=== PATIENT | female | born 1945 | race Hispanic/Latino ===

== ENCOUNTER 2017-03-26 11:20 | Inpatient (IN) | payer MEDICARE ==
[2017-03-26] MEDS ORDERED: Morphine 4 MG/ML VIAL ONE (12:14)
--- NOTE | 2017-03-26 12:24 | ED PDOC ---
HPI: General Adult Time Seen by Provider: 03/26/17 11:25 Chief Complaint (Nursing): Lower Extremity Problem/Injury History Per: Patient, Family Additional Complaint(s): Pt. states earlier today she attempted to sit on top of her radiator and accidentally fell landing on her L side injuring her L hip. States that she was able to stand up and bare weight on the affected leg but with pain. Pt. states she was only on the floor for ~15 minutes until she was helped up. Of note, pt. has hx of polio which affects the L leg. Denies head injury, chest pain, palpitations, numbness, tingling. Past Medical History Reviewed: Historical Data, Nursing Documentation, Vital Signs Vital Signs: Last Vital Signs Temp 98.3 F 03/26/17 11:23 Pulse 63 03/26/17 19:49 Resp 18 03/26/17 11:23 BP 121/73 03/26/17 16:22 Pulse Ox 100 03/26/17 19:49 - Medical History PMH: HTN, Hypercholesterolemia - Family History Family History: States: No Known Family Hx - Home Medications Home Medications: Ambulatory Orders Medication Instructions Recorded Losartan [Cozaar] 25 mg PO DAILY 03/26/17 Simvastatin [Zocor] 20 mg PO HS 03/26/17 - Allergies Allergies/Adverse Reactions: Allergies Allergy/AdvReac Type Severity Reaction Status Date / Time No Known Allergies Allergy Verified 03/26/17 11:23 Review of Systems ROS Statement: Except As Marked, All Systems Reviewed And Found Negative Physical Exam - Physical Exam Appears: Positive for: Well, Non-toxic, No Acute Distress Head Exam: Positive for: ATRAUMATIC, NORMAL INSPECTION, NORMOCEPHALIC Skin: Positive for: Normal Color, Warm. Negative for: Rash Eye Exam: Positive for: Normal appearance Pulses-Dorsalis Pedis (L): 2+ Pulses-Dorsalis Pedis (R): 2+ Gastrointestinal/Abdominal: Positive for: Normal Exam, Soft. Negative for: Tenderness Back: Positive for: Normal Inspection. Negative for: Vertebral Tenderness Extremity: Positive for: Other (L groin tenderness but pt. with FROM actively of L hip) Neurologic/Psych: Positive for: Alert, Oriented - Laboratory Results Result Diagrams: 03/26/17 16:00 03/26/17 16:00 - ECG ECG: Positive for: Interpreted By Me ECG Rhythm: Positive for: Sinus Rhythm. Negative for: ST/T Changes Rate: 63 O2 Sat by Pulse Oximetry: 100 - Radiology X-Ray: Interpreted by Me (CXR) X-Ray Interpretation: No Acute Disease - Progress ED Course And Treament: Morphine 1mg IV, zofran 4mg IV, L hip x-ray ordered. L hip x-ray: indeterminate femoral neck fx. CT L hip w/o contrast ordered. CT L hip w/o contrast: Minimally displaced subcapital fracture of the left femoral neck. Labs ordered. CXR, EKG ordered. Case d/w Dr. Johnson who requests Dr. Gonzalez for orthopedic consult. Call placed to Dr. Gonzalez. Case d/w Dr. Gonzalez who will take pt. to OR tomorrow and requires med clearance. Dr. Johnson informed of need for clearance and states he is on his way to hospital to evaluate pt. Disposition - Clinical Impression Clinical Impression: Hip fracture - Patient ED Disposition Is Patient to be Admitted: Yes - Disposition Disposition Time: 15:51 Condition: STABLE
--- NOTE | 2017-03-26 15:30 | CT ---
PROCEDURE: CT Pelvis without contrast HISTORY: s/p fall COMPARISON: None. TECHNIQUE: Contiguous axial images of the pelvis . No intravenous or oral contrast given. Coronal and sagittal reformats generated. Radiation dose: Total exam DLP = mGy-cm. This CT exam was performed using one or more of the following dose reduction techniques: Automated exposure control, adjustment of the mA and/or kV according to patient size, and/or use of iterative reconstruction technique. FINDINGS: BLADDER: Unremarkable. No mass. REPRODUCTIVE ORGANS: Unremarkable. VISUALIZED BOWEL: Unremarkable. PERITONEUM: Unremarkable, as visualized. No free fluid. No free air. LYMPH NODES: Unremarkable. No enlarged lymph nodes. BONES: Minimally displaced subcapital fracture of the left femoral neck. VASCULATURE: Unremarkable. OTHER FINDINGS: None. IMPRESSION: Minimally displaced subcapital fracture of the left femoral neck.
--- NOTE | 2017-03-26 15:32 | CT ---
PROCEDURE: CT of the Left Hip. HISTORY: attention L hip; s/p fall COMPARISON: None available. TECHNIQUE: Contiguous axial images of the left hip were obtained. Coronal and sagittal reformats were generated. This CT exam was performed using one or more of the following dose reduction techniques: Automated exposure control, adjustment of the mA and/or kV according to patient size, and/or use of iterative reconstruction technique. FINDINGS: BONES: Minimally displaced subcapital fracture of the left femoral neck.Femoral head maintains normal contour. LEFT HIP JOINT: Unremarkable. No dislocation. No degenerative changes. SOFT TISSUES: Unremarkable. IMPRESSION: Minimally displaced subcapital fracture of the left femoral neck.
[2017-03-26] MEDS ORDERED: Sodium Chloride 0.9% 1,000 ML IV STA (16:00)
[2017-03-26 16:21] LABS: BASO % 0.3 % (0.0-2.0); EOS # 0.2 K/uL (0.0-0.7); EOS % 2.4 % (0.0-4.0); HEMATOCRIT 43.2 % (34.0-47.0); LYMPH # 1.3 K/uL (1.0-4.3); LYMPH % 19.7 % (20.0-40.0); MEAN CELL VOLUME 90.7 fl (81.0-99.0); MEAN CORPUSCULAR HEMOGLOBIN 30.6 pg (27.0-31.0); MEAN CORPUSCULAR HGB CONC 33.8 g/dL (33.0-37.0); MEAN PLATELET VOLUME 9.2 fl (7.2-11.7); MONO # 0.3 K/uL (0.0-0.8); MONO % 4.7 % (0.0-10.0); NEUT # 4.9 K/uL (1.8-7.0); NEUT % 72.9 % (50.0-75.0); NRBC % 0.1 % (0.0-0.0); RED CELL DISTRIBUTION WIDTH 15.4 % (11.5-14.5); WHITE BLOOD COUNT 6.7 K/uL (4.8-10.8)
[2017-03-26 16:22] LABS: ALB/GLOB RATIO 1.1 (1.0-2.1); ALKALINE PHOSPHATASE 75 U/L (38-126); ALT/SGPT 37 U/L (9-52); AST/SGOT 23 U/L (14-36); BILIRUBIN,TOTAL 0.7 mg/dl (0.2-1.3); BLOOD UREA NITROGEN 24 mg/dl (7-17); CALCIUM 9.2 mg/dL (8.4-10.2); CARBON DIOXIDE 27 mmol/L (22-30); CHLORIDE 106 mmol/L (98-107); GFR AFRICAN-AMERICAN > 60; GLUCOSE,RANDOM 74 mg/dL (65-105); POTASSIUM 3.9 MMOL/L (3.6-5.0); SODIUM 143 mmol/l (132-148); TOTAL PROTEIN 8.1 G/DL (6.3-8.2)
[2017-03-26 16:49] LABS: PARTIAL THROMBOPLASTIN TIME 28.9 Seconds (25.6-37.1)
--- NOTE | 2017-03-26 17:02 | RAD ---
PROCEDURE: HISTORY: trauma COMPARISON: TECHNIQUE: FINDINGS: Subcapital fracture of the left femoral neck. IMPRESSION: See above
--- NOTE | 2017-03-26 17:09 | RAD ---
HISTORY: clearance COMPARISON: No prior. FINDINGS: LUNGS: No active pulmonary disease. PLEURA: No significant pleural effusion identified, no pneumothorax apparent. CARDIOVASCULAR: Normal. OSSEOUS STRUCTURES: No significant abnormalities. VISUALIZED UPPER ABDOMEN: Normal. OTHER FINDINGS: None. IMPRESSION: No active disease.
[2017-03-26 19:01] LABS: RBC URINE 5 /hpf (0-3); URINE BACTERIA RARE (<OCC); URINE BILIRUBIN NEGATIVE (NEGATIVE); URINE BLOOD SMALL (NEGATIVE); URINE COLOR YELLOW (YELLOW); URINE GLUCOSE (UA) NEG (Normal); URINE KETONE TRACE mg/dL (NEGATIVE); URINE LEUKOCYTE ESTERASE NEG Leu/uL (Negative); URINE PROTEIN NEGATIVE (NEGATIVE); URINE UROBILINOGEN 0.2-1.0 mg/dL (0.2-1.0); WBC URINE 2 /hpf (0-5)
[2017-03-26] MEDS ORDERED: Dextrose 5%/0.9% NS 1,000 ML IV SCH (20:00)
--- NOTE | 2017-03-26 20:12 | CP.PCM.HP ---
History of Present Illness - History of Present Illness History of Present Illness: Pt.is 71 y/o Indian speaking lady with hx of HTN, residual of polio in her lt lower limb. She c/o that earlier today she attempted to sit on top of her radiator and accidentally fell landing on her L side injuring her L hip. Since than she c/o that she was not able to stand up with severe pain. At present c/ o pain with any movement. The pain is relieved by morphine iv. Present on Admission - Present on Admission Any Indicators Present on Admission: No Review of Systems - Constitutional Constitutional: As Per HPI - EENT Eyes: As Per HPI - Cardiovascular Cardiovascular: As Per HPI - Respiratory Respiratory: As Per HPI - Gastrointestinal Gastrointestinal: As Per HPI - Musculoskeletal Musculoskeletal: As Per HPI - Neurological Neurological: As Per HPI - Psychiatric Psychiatric: As Per HPI Past Patient History - Past Social History Smoking Status: Never Smoked - CARDIAC Hx Hypercholesterolemia: Yes Hx Hypertension: Yes - PULMONARY Hx Respiratory Disorders: No - MUSCULOSKELETAL/RHEUMATOLOGICAL Hx Musculoskeletal Disorders: Yes - PSYCHIATRIC Hx Substance Use: No Meds Allergies/Adverse Reactions: Allergies Allergy/AdvReac Type Severity Reaction Status Date / Time No Known Allergies Allergy Verified 03/26/17 11:23 Physical Exam - Constitutional Appears: In Acute Distress - Head Exam Head Exam: ATRAUMATIC, NORMAL INSPECTION, NORMOCEPHALIC - Eye Exam Eye Exam: Normal appearance - ENT Exam ENT Exam: Mucous Membranes Moist - Neck Exam Neck exam: Positive for: Full Rom - Respiratory Exam Respiratory Exam: NORMAL BREATHING PATTERN - Cardiovascular Exam Cardiovascular Exam: REGULAR RHYTHM, +S1, +S2 - GI/Abdominal Exam GI & Abdominal Exam: Normal Bowel Sounds, Soft - Extremities Exam Additional comments: + tenderness at level of the hip, patien not able to articulate the lt lower limb secondary to severe pain. - Neurological Exam Neurological exam: Abnormal Gait, Alert, CN II-XII Intact, Oriented x3 Additional comments: not able to ambulate - Psychiatric Exam Psychiatric exam: Anxious - Skin Skin Exam: Intact Results - Vital Signs Recent Vital Signs: Last Vital Signs Temp 98.3 F 03/26/17 11:23 Pulse 63 03/26/17 19:50 Resp 18 03/26/17 11:23 BP 121/73 03/26/17 16:22 Pulse Ox 100 03/26/17 19:50 - Labs Result Diagrams: 03/26/17 16:00 03/26/17 16:00 Labs: Laboratory Results - last 24 hr 03/26/17 03/26/17 03/26/17 16:00 16:00 16:00 WBC 6.7 RBC 4.76 Hgb 14.6 Hct 43.2 MCV 90.7 MCH 30.6 MCHC 33.8 RDW 15.4 H Plt Count 196 MPV 9.2 Neut % (Auto) 72.9 Lymph % (Auto) 19.7 L [place] % (Auto) 4.7 Eos % (Auto) 2.4 Baso % (Auto) 0.3 Neut # 4.9 Lymph # 1.3 [place] # 0.3 Eos # 0.2 Baso # 0.0 PT INR APTT Sodium 143 Potassium 3.9 Chloride 106 Carbon Dioxide 27 Anion Gap 14 BUN 24 H Creatinine 0.4 L Est GFR ( Amer) > 60 Est GFR (Non-Af Amer) > 60 Random Glucose 74 Calcium 9.2 Total Bilirubin 0.7 AST 23 ALT 37 Alkaline Phosphatase 75 Total Protein 8.1 Albumin 4.3 Globulin 3.8 Albumin/Globulin Ratio 1.1 Urine Color Urine Clarity Urine pH Ur Specific [place] Urine Protein Urine Glucose (UA) Urine Ketones Urine Blood Urine Nitrate Urine Bilirubin Urine Urobilinogen Ur Leukocyte Esterase Urine RBC (Auto) Urine Microscopic WBC Ur Squamous Epith Cells Urine Bacteria Blood Type A POSITIVE Antibody Screen Negative BBK History Checked No verified bt 03/26/17 03/26/17 16:00 18:40 WBC RBC Hgb Hct MCV MCH MCHC RDW Plt Count MPV Neut % (Auto) Lymph % (Auto) [place] % (Auto) Eos % (Auto) Baso % (Auto) Neut # Lymph # [place] # Eos # Baso # PT 11.5 INR 1.0 APTT 28.9 Sodium Potassium Chloride Carbon Dioxide Anion Gap BUN Creatinine Est GFR ( Amer) Est GFR (Non-Af Amer) Random Glucose Calcium Total Bilirubin AST ALT Alkaline Phosphatase Total Protein Albumin Globulin Albumin/Globulin Ratio Urine Color Yellow Urine Clarity Slighty-cloudy Urine pH 6.0 Ur Specific [place] 1.016 Urine Protein Negative Urine Glucose (UA) Neg Urine Ketones Trace Urine Blood Small Urine Nitrate Negative Urine Bilirubin Negative Urine Urobilinogen 0.2-1.0 Ur Leukocyte Esterase Neg Urine RBC (Auto) 5 H Urine Microscopic WBC 2 Ur Squamous Epith Cells < 1 Urine Bacteria Rare Blood Type Antibody Screen BBK History Checked Assessment & Plan (1) Hyperlipemia Status: Chronic (2) Hypertensive cardiovascular disease Status: Chronic (3) Hip fracture Status: Acute (4) Polio Status: Chronic - Assessment and Plan (Free Text) Plan: Discussed with Dr Gonzalez. IVF, bed rest, for surgery.
--- NOTE | 2017-03-27 07:07 | CARD ---
APPROVED REPORT EKG Measurement Heart [id number] [id number] <Conclusion> Normal sinus rhythm Possible Anterior infarct, age undetermined Abnormal ECG
--- NOTE | 2017-03-27 08:28 | CP.PCM.CON ---
History of Present Illness - History of Present Illness History of Present Illness: Orthopedic consultation Dr. Gonzalez 71F complains of left hip pain after fall at home onto left side. Denies any CP/ SOB/dizziness preceding fall. She has history of polio with left leg involvement , has orthopedic shoe, has had surgery on knee and ankle approx 40 years ago for same, and ambulates without assistive device. She denies pain in other extremities. Past Patient History - Past Medical History & Family History Past Medical History?: Yes - Past Social History Smoking Status: Never Smoked - CARDIAC Hx Hypercholesterolemia: Yes Hx Hypertension: Yes - PULMONARY Hx Respiratory Disorders: No - MUSCULOSKELETAL/RHEUMATOLOGICAL Hx Falls: Yes Other/Comment: Polio - PSYCHIATRIC Hx Substance Use: No - ANESTHESIA Hx Anesthesia: Yes Hx Anesthesia Reactions: No Meds Allergies/Adverse Reactions: Allergies Allergy/AdvReac Type Severity Reaction Status Date / Time No Known Allergies Allergy Verified 03/26/17 11:23 - Medications Medications: Current Medications Dextrose/Sodium Chloride (Dextrose 5%/0.9% Ns 1000 Ml) 1,000 mls @ 85 mls/hr IV .[id number] CARLITO Stop: 03/27/17 19:57 Last Admin: 03/26/17 23:43 Dose: 85 mls/hr Physical Exam - Expanded Lower Extremities Exam Left Ankle exam: deformity (+toe flexion, no active ankle ROM, +DP/PT pulses, calves soft NT neg homans well healed scars to knee and ankle) Neuro vacular tendon exam: no vascular compromise - Neurological Exam Neurological exam: Alert, Oriented x3 - Psychiatric Exam Psychiatric exam: Normal Affect, Normal Mood - Skin Skin Exam: Dry, Intact, Warm Additional comments: noted areas of erythema to anterior thigh, patient states she put ice directly on skin Results - Vital Signs Recent Vital Signs: Last Vital Signs Temp 99.2 F 03/27/17 08:08 Pulse 78 03/27/17 08:08 Resp 20 03/27/17 08:08 BP 126/69 03/27/17 08:08 Pulse Ox 91 L 03/27/17 08:08 - Labs Result Diagrams: 03/27/17 08:44 03/26/17 16:00 Labs: Laboratory Results - last 24 hr 03/26/17 03/26/17 03/26/17 16:00 16:00 16:00 WBC 6.7 RBC 4.76 Hgb 14.6 Hct 43.2 MCV 90.7 MCH 30.6 MCHC 33.8 RDW 15.4 H Plt Count 196 MPV 9.2 Neut % (Auto) 72.9 Lymph % (Auto) 19.7 L [place] % (Auto) 4.7 Eos % (Auto) 2.4 Baso % (Auto) 0.3 Neut # 4.9 Lymph # 1.3 [place] # 0.3 Eos # 0.2 Baso # 0.0 PT INR APTT Sodium 143 Potassium 3.9 Chloride 106 Carbon Dioxide 27 Anion Gap 14 BUN 24 H Creatinine 0.4 L Est GFR ( Amer) > 60 Est GFR (Non-Af Amer) > 60 Random Glucose 74 Calcium 9.2 Total Bilirubin 0.7 AST 23 ALT 37 Alkaline Phosphatase 75 Total Protein 8.1 Albumin 4.3 Globulin 3.8 Albumin/Globulin Ratio 1.1 Urine Color Urine Clarity Urine pH Ur Specific [place] Urine Protein Urine Glucose (UA) Urine Ketones Urine Blood Urine Nitrate Urine Bilirubin Urine Urobilinogen Ur Leukocyte Esterase Urine RBC (Auto) Urine Microscopic WBC Ur Squamous Epith Cells Urine Bacteria Blood Type A POSITIVE Blood Type Confirm Antibody Screen Negative BBK History Checked No verified bt 03/26/17 03/26/17 03/26/17 16:00 18:40 20:30 WBC RBC Hgb Hct MCV MCH MCHC RDW Plt Count MPV Neut % (Auto) Lymph % (Auto) [place] % (Auto) Eos % (Auto) Baso % (Auto) Neut # Lymph # [place] # Eos # Baso # PT 11.5 INR 1.0 APTT 28.9 Sodium Potassium Chloride Carbon Dioxide Anion Gap BUN Creatinine Est GFR ( Amer) Est GFR (Non-Af Amer) Random Glucose Calcium Total Bilirubin AST ALT Alkaline Phosphatase Total Protein Albumin Globulin Albumin/Globulin Ratio Urine Color Yellow Urine Clarity Slighty-cloudy Urine pH 6.0 Ur Specific [place] 1.016 Urine Protein Negative Urine Glucose (UA) Neg Urine Ketones Trace Urine Blood Small Urine Nitrate Negative Urine Bilirubin Negative Urine Urobilinogen 0.2-1.0 Ur Leukocyte Esterase Neg Urine RBC (Auto) 5 H Urine Microscopic WBC 2 Ur Squamous Epith Cells < 1 Urine Bacteria Rare Blood Type Blood Type Confirm A POSITIVE Antibody Screen BBK History Checked Assessment & Plan (1) Left displaced femoral neck fracture Assessment and Plan: for anterior THR today NPO T&C labs reviewed H&P reviewed, per Dr. Johnson for OR d/w Dr. Gonzalez, agrees with above Status: Acute
[2017-03-27 08:53] LABS: HEMATOCRIT 39.7 % (34.0-47.0); MEAN CELL VOLUME 89.8 fl (81.0-99.0); MEAN CORPUSCULAR HEMOGLOBIN 30.6 pg (27.0-31.0); MEAN CORPUSCULAR HGB CONC 34.1 g/dL (33.0-37.0); WHITE BLOOD COUNT 7.1 K/uL (4.8-10.8)
[2017-03-27] MEDS ORDERED: ceFAZolin IV 1 gm in Dextrose 0 GM/0 ML BAG IVPB ONE (11:39)
[2017-03-27] MEDS ORDERED: Morphine 1 mg/ml preservative-free Inj(Duramorph) ONE (11:55)
[2017-03-27] MEDS ORDERED: Rocuronium 10 mg/ml (5 ml) ONE (11:55)
[2017-03-27] MEDS ORDERED: Midazolam 2 MG/2 ML VIAL ONE (11:56)
[2017-03-27] MEDS ORDERED: Succinylcholine 200 mg/10 ml Inj IV ONE (11:56)
[2017-03-27] MEDS ORDERED: Propofol 10 mg/ml Inj (20 ML) ONE (11:57)
[2017-03-27] MEDS ORDERED: Lactated Ringer's 1,000 ML IV ONE ×2 (12:40→14:40)
[2017-03-27] MEDS ORDERED: ceFAZolin IV 1 gm in Dextrose 1 GM/50 ML BAG IVPB ONE ×2 (13:07→13:28)
[2017-03-27] MEDS ORDERED: ePHEDrine 50 mg/ml Inj ONE (14:21)
[2017-03-27] MEDS ORDERED: HYDROmorphone 0.5 mg/0.5 ml ISec IVP PRN (16:45)
--- NOTE | 2017-03-27 17:23 | PCM.SURG1 ---
Surgeon's Initial Post Op Note - Surgeon's Notes Surgeon: Lisa Document Management Consultant: MYRNA Saenz/2nd Clementina Majano PA-c Type of Anesthesia: General Endo, Spinal Anesthesia Administered By: Dr Sinan Love Pre-Operative Diagnosis: [place] 4 pathologic(polio-chrocic) subcapital fx L hip Operative Findings: as above. sevre ostepenia. fx greater trochanter Post-Operative Diagnosis: as above Operation Performed: L THR. femoral neck osteotomy. open treatment of trochanteric fx. release iliopsoas tendon Specimen/Specimens Removed: bone/cartilage/synovium Estimated Blood Loss: EBL {In ML}: 375 Blood Products Given: N/A Drains Used: No Drains Post-Op Condition: Good Date of Surgery/Procedure: 03/27/17 Time of Surgery/Procedure: 14:05 (time in room 12:40/ anestjesia induction time)
--- NOTE | 2017-03-27 18:58 | CP.PCM.PN ---
Subjective - Date & Time of Evaluation Date of Evaluation: 03/27/17 Time of Evaluation: 18:58 - Subjective Subjective: Patient seen at bed side before surgery. Comfortable. Objective - Vital Signs/Intake and Output Vital Signs (last 24 hours): Temp Pulse Resp BP Pulse Ox 98.2 F 70 18 101/65 95 03/27/17 17:35 03/27/17 17:35 03/27/17 17:35 03/27/17 17:35 03/27/17 17:35 Intake and Output: 03/27/17 03/27/17 11:59 23:59 Intake Total 1999 Balance 1999 - Medications Medications: Current Medications Docusate Sodium (Colace) 100 mg PO BID CARLITO Enoxaparin Sodium (Lovenox) 40 mg SC Q24H [facility] PRN Reason: Protocol Hydromorphone HCl (Dilaudid 0.2 Mg/Ml [employer]) 0 mg IV PRN PRN; Protocol PRN Reason: Pain, moderate (4-7) Dextrose/Sodium Chloride (Dextrose 5%/0.9% Ns 1000 Ml) 1,000 mls @ 85 mls/hr IV .[id number] [facility] Stop: 03/27/17 19:57 Last Admin: 03/26/17 23:43 Dose: 85 mls/hr Cefazolin Sodium/Dextrose (Ancef Iv 1 Gm Duplex) 1 gm in 50 mls @ 50 mls/hr IVPB Q8H [facility] PRN Reason: Protocol Sodium Chloride (Sodium Chloride 0.9%) 1,000 mls @ 100 mls/hr IV .Q10H [facility] Morphine Sulfate (Morphine) 2 mg IVP Q4 PRN PRN Reason: Pain, severe (8-10) Oxycodone/Acetaminophen (Percocet 5/325 Mg Tab) 1 tab PO Q4 PRN PRN Reason: Pain, moderate (4-7) Stop: 03/30/17 13:44 - Labs Labs: 03/27/17 08:44 03/26/17 16:00 PT 11.5 Seconds (9.8-13.1) 03/26/17 16:00 INR 1.0 (0.9-1.2) 03/26/17 16:00 APTT 28.9 Seconds (25.6-37.1) 03/26/17 16:00 - Constitutional Appears: No Acute Distress - Head Exam Head Exam: ATRAUMATIC, NORMAL INSPECTION, NORMOCEPHALIC - Eye Exam Eye Exam: Normal appearance - ENT Exam ENT Exam: Normal Exam - Neck Exam Neck Exam: Full ROM - Respiratory Exam Respiratory Exam: Clear to Ausculation Bilateral - Cardiovascular Exam Cardiovascular Exam: REGULAR RHYTHM, +S1, +S2 - GI/Abdominal Exam GI & Abdominal Exam: Soft, Normal Bowel Sounds - Neurological Exam Neurological Exam: Alert, Awake, CN II-XII Intact, Oriented x3 - Psychiatric Exam Psychiatric exam: Normal Mood Assessment and Plan (1) Hyperlipemia Status: Chronic (2) Hypertensive cardiovascular disease Status: Chronic (3) Hip fracture Status: Acute (4) Polio Status: Chronic
[2017-03-27] MEDS: Sodium Chloride 0.9% 1,000 ML IV SCH (19:12)
[2017-03-27] MEDS: ceFAZolin IV 1 gm in Dextrose 1 GM/50 ML BAG IVPB SCH (21:22)
[2017-03-28] MEDS: Sodium Chloride 0.9% 1,000 ML IV SCH ×3 (03:31→16:20)
[2017-03-28] MEDS: ceFAZolin IV 1 gm in Dextrose 1 GM/50 ML BAG IVPB SCH ×3 (04:45→20:50)
[2017-03-28 06:25] LABS: HEMATOCRIT 32.7 % (34.0-47.0); MEAN CELL VOLUME 87.9 fl (81.0-99.0); MEAN CORPUSCULAR HEMOGLOBIN 30.1 pg (27.0-31.0); MEAN CORPUSCULAR HGB CONC 34.2 g/dL (33.0-37.0); RED CELL DISTRIBUTION WIDTH 17.3 % (11.5-14.5); WHITE BLOOD COUNT 8.4 K/uL (4.8-10.8)
[2017-03-28 06:45] LABS: BLOOD UREA NITROGEN 14 mg/dl (7-17); CALCIUM 7.8 mg/dL (8.4-10.2); CARBON DIOXIDE 27 mmol/L (22-30); CHLORIDE 107 mmol/L (98-107); GFR AFRICAN-AMERICAN > 60; GLUCOSE,RANDOM 143 mg/dL (65-105); POTASSIUM 3.9 MMOL/L (3.6-5.0); SODIUM 140 mmol/l (132-148)
[2017-03-28] MEDS: Oxycodone/Acetaminophen 5/325 mg Tab PO PRN ×2 (08:58→20:54)
--- NOTE | 2017-03-28 10:05 | RAD ---
PROCEDURE: Left Hip X-ray Radiographs. HISTORY: left total hip replacement COMPARISON: Left hip CT 03/26/2017. FINDINGS: BONES: Patient is status post left total hip replacement with acetabular and femoral hardware in good apparent position. No fractures identified. JOINTS: No dislocation or subluxation. SOFT TISSUES: Postop soft tissue changes seen at the medial lateral left hip joint soft tissues and skin ludy are identified identified laterally. OTHER FINDINGS: None. IMPRESSION: As per above.
[2017-03-28] MEDS ORDERED: Denosumab 60 mg/ml Sol(Prolia) SC ONE (15:17)
--- NOTE | 2017-03-28 15:23 | CP.PCM.DIS ---
Provider - Provider Date of Admission: 03/26/17 15:51 Attending physician: Schuyler Johnson MD Time Spent in preparation of Discharge (in minutes): 30 Diagnosis - Discharge Diagnosis (1) Hyperlipemia Status: Chronic (2) Hypertensive cardiovascular disease Status: Chronic (3) Hip fracture Status: Acute (4) Polio Status: Chronic Hospital Course - Lab Results Lab Results: Most Recent Lab Values WBC 8.4 K/uL (4.8-10.8) 03/28/17 05:20 RBC 3.73 Mil/uL (3.80-5.20) L 03/28/17 05:20 Hgb 11.2 g/dL (12.0-16.0) L D 03/28/17 05:20 Hct 32.7 % (34.0-47.0) L 03/28/17 05:20 MCV 87.9 fl (81.0-99.0) 03/28/17 05:20 MCH 30.1 pg (27.0-31.0) 03/28/17 05:20 MCHC 34.2 g/dL (33.0-37.0) 03/28/17 05:20 RDW 17.3 % (11.5-14.5) H 03/28/17 05:20 Plt Count 143 K/uL (130-400) 03/28/17 05:20 MPV 9.2 fl (7.2-11.7) 03/26/17 16:00 Neut % (Auto) 72.9 % (50.0-75.0) 03/26/17 16:00 Lymph % (Auto) 19.7 % (20.0-40.0) L 03/26/17 16:00 [place] % (Auto) 4.7 % (0.0-10.0) 03/26/17 16:00 Eos % (Auto) 2.4 % (0.0-4.0) 03/26/17 16:00 Baso % (Auto) 0.3 % (0.0-2.0) 03/26/17 16:00 Neut # 4.9 K/uL (1.8-7.0) 03/26/17 16:00 Lymph # 1.3 K/uL (1.0-4.3) 03/26/17 16:00 [place] # 0.3 K/uL (0.0-0.8) 03/26/17 16:00 Eos # 0.2 K/uL (0.0-0.7) 03/26/17 16:00 Baso # 0.0 K/uL (0.0-0.2) 03/26/17 16:00 PT 11.5 Seconds (9.8-13.1) 03/26/17 16:00 INR 1.0 (0.9-1.2) 03/26/17 16:00 APTT 28.9 Seconds (25.6-37.1) 03/26/17 16:00 Sodium 140 mmol/l (132-148) 03/28/17 05:20 Potassium 3.9 MMOL/L (3.6-5.0) 03/28/17 05:20 Chloride 107 mmol/L (98-107) 03/28/17 05:20 Carbon Dioxide 27 mmol/L (22-30) 03/28/17 05:20 Anion Gap 10 (10-20) 03/28/17 05:20 BUN 14 mg/dl (7-17) 03/28/17 05:20 Creatinine 0.4 mg/dl (0.7-1.2) L 03/28/17 05:20 Est GFR ( Amer) > 60 03/28/17 05:20 Est GFR (Non-Af Amer) > 60 03/28/17 05:20 Random Glucose 143 mg/dL (65-105) H 03/28/17 05:20 Calcium 7.8 mg/dL (8.4-10.2) L 03/28/17 05:20 Total Bilirubin 0.7 mg/dl (0.2-1.3) 03/26/17 16:00 AST 23 U/L (14-36) 03/26/17 16:00 ALT 37 U/L (9-52) 03/26/17 16:00 Alkaline Phosphatase 75 U/L (38-126) 03/26/17 16:00 Total Protein 8.1 G/DL (6.3-8.2) 03/26/17 16:00 Albumin 4.3 g/dL (3.5-5.0) 03/26/17 16:00 Globulin 3.8 gm/dL (2.2-3.9) 03/26/17 16:00 Albumin/Globulin Ratio 1.1 (1.0-2.1) 03/26/17 16:00 Urine Color Yellow (YELLOW) 03/26/17 18:40 Urine Clarity Slighty-cloudy (Clear) 03/26/17 18:40 Urine pH 6.0 (5.0-8.0) 03/26/17 18:40 Ur Specific [employer] 1.016 (1.003-1.030) 03/26/17 18:40 Urine Protein Negative mg/dL (NEGATIVE) 03/26/17 18:40 Urine Glucose (UA) Neg mg/dL (Normal) 03/26/17 18:40 Urine Ketones Trace mg/dL (NEGATIVE) 03/26/17 18:40 Urine Blood Small (NEGATIVE) 03/26/17 18:40 Urine Nitrate Negative (NEGATIVE) 03/26/17 18:40 Urine Bilirubin Negative (NEGATIVE) 03/26/17 18:40 Urine Urobilinogen 0.2-1.0 mg/dL (0.2-1.0) 03/26/17 18:40 Ur Leukocyte Esterase Neg Jenni/uL (Negative) 03/26/17 18:40 Urine RBC (Auto) 5 /hpf (0-3) H 03/26/17 18:40 Urine Microscopic WBC 2 /hpf (0-5) 03/26/17 18:40 Ur Squamous Epith Cells < 1 /hpf (0-5) 03/26/17 18:40 Urine Bacteria Rare (<OCC) 03/26/17 18:40 Blood Type A POSITIVE 03/26/17 16:00 Blood Type Confirm A POSITIVE 03/26/17 20:30 Antibody Screen Negative 03/26/17 16:00 Crossmatch See Detail 03/26/17 16:00 BBK History Checked No verified bt 03/26/17 16:00 - Hospital Course Hospital Course: Pt.is 71 y/o Turkish speaking lady with hx of HTN, residual of polio in her lt lower limb. She c/o that day of admission she attempted to sit on top of her radiator and accidentally fell landing on her L side injuring her L hip. She has an acute fx of the hip. The patient underwent to hip surgery. Will dc to snf for rehabilitation. Discharge Exam - Head Exam Head Exam: ATRAUMATIC, NORMAL INSPECTION, NORMOCEPHALIC - Eye Exam Eye Exam: Normal appearance - Neck Exam Neck exam: Full Rom - Respiratory Exam Respiratory Exam: Clear to PA & Lateral - Cardiovascular Exam Cardiovascular Exam: REGULAR RHYTHM, +S1, +S2 - GI/Abdominal Exam GI & Abdominal Exam: Normal Bowel Sounds - Neurological Exam Neurological exam: Alert, CN II-XII Intact, Oriented x3 - Psychiatric Exam Psychiatric exam: Normal Affect - Skin Skin Exam: Normal Color Discharge Plan - Follow Up Plan Condition: STABLE Disposition: REHAB FACILITY/REHAB UNIT
[2017-03-28] MEDS ORDERED: Citracal+D 315mg/250IU PO SCH (15:30)
[2017-03-28] MEDS ORDERED: Enoxaparin 40 mg Syringe SC SCH (16:00)
[2017-03-28 22:19] VITALS: BP 91/50; PULSE 70; RESP 20; TEMP 99; O2SAT 97
[2017-03-29] MEDS ORDERED: Citracal+D 315mg/250IU PO SCH (09:00)
--- NOTE | 2017-03-29 09:03 | RAD ---
PROCEDURE: Fluoroscopy HISTORY: LEFT HIP COMPARISON: Greater than 1 hour none TECHNIQUE: Standard protocol for this study/examination. FINDINGS: Submitted images from the current procedure: 11.0 IMPRESSION: Fluoroscopic assistance provided left RON.
--- NOTE | 2017-03-31 09:57 | OP ---
PROCEDURE DATE: 03/27/2017 PREOPERATIVE DIAGNOSIS: Gardens IV pathologic (chronic polio subcapital fracture of the left femur) left hip. POSTOPERATIVE DIAGNOSIS: Gardens IV pathologic (chronic polio subcapital fracture of the left femur) left hip. OPERATIVE FINDINGS: 1. Severe osteopenia. 2. Abnormal musculature secondary polio. 3. Fracture of the greater trochanter with comminution. OPERATION PERFORMED: 1. Left total hip replacement, anterior approach. 2. Femoral neck osteotomy. 3. Open treatment of greater trochanteric fracture, release of iliopsoas tendon, autograft bone grafting to the acetabulum. SURGEON: Tod Gonzalez MD. CELLAR SUPERVISOR: Rodrigo Majano PA-C SECOND PHLEBOTOMY SERVICES TECHNICIAN: Sonya Puentes, Certified Registered Nursing physician assistant primary care. SPECIMEN REMOVED: Bone, cartilage, synovium. ESTIMATED BLOOD LOSS: Approximately 375 mL. BLOOD PRODUCTS GIVEN: None. DRAINS: None. POSTOPERATIVE CONDITION: Stable. OPERATIVE INDICATIONS: Bernadine Soler is a patient of Dr. Schuyler Johnson who early in the 1950s was diagnosed with polio. The patient, as a result, has had gait disturbance and neurologic deficit in the left lower extremity since then. The patient sustained a fall and presented to the emergency room with a subcapital fracture of the left femur, left hip. The patient was admitted and stabilized by Dr. Johnson. The gravity of this fracture was discussed. The patient unfortunately sustained a Gardens IV subcapital displaced fracture of the left hip. Pros, cons, risks, and benefits of surgical approach were discussed. The possibility of mechanical failure, infection, thromboembolic disease, secondary or tertiary surgery was discussed. The concept of possible secondary or tertiary surgery because of the poor quality of the bone was discussed at length with the family. Informed consent was obtained after the satisfactory induction of general and spinal anesthesia by Dr. Sinan Phipps, and the patient identified as Bernadine Soler, was placed in the supine position with the AMIS traction device. It should be noted that the procedure also included and was consented for pins placed in the right iliac crest for computer navigation. After having obtained informed consent; after the satisfactory induction of the anesthetic as above by Dr. Phipps; after having identified side, site, and procedure and a critical pause/time-out, the patient identified as Bernadine Soler in the supine position with all bony prominence well padded. The left lower extremity was prepped, free draped in usual fashion [place] [facility] [place] Under the surgeon's direction, the fluoroscope was positioned, video images were generated, therapeutic decisions were made therefrom. There was a very high neck fracture, so a femoral neck osteotomy has to be planned both virtually intraoperatively and preoperatively. Two pins were placed in the right iliac crest one fingerbreadth posterior to the ASIS. The accelerometer optically-controlled camera was placed and positioned. This having been accomplished, attention was turned to the fracture site at a point approximately one fingerbreadth distal to the ASIS and three fingerbreadths posteriorly. An incision was described superficial to the tensor fascia femoris muscle. The skin incision was carried down through the skin and subcutaneous tissue. The muscle was taken down from the fascia. The modified Bartolo-Debby retractor was placed. The posterior margin of the rectus femoris was identified. The superficial fascia was identified and divided. The anterior branch of the lateral femoral circumflex vessels was controlled, ligated, and hemostasis controlled. The capsulotomy was accomplished from the lateral aspect of the acetabulum to the lesser trochanter. The capsular flap was elevated. The tissue was extremely poor. Femoral neck osteotomy was accomplished deeper and a napkin ring was removed and the head was removed from the acetabulum at this point. The Charnley retractor was placed exposing the acetabulum. The labrum was excised, the pulvinar was excised. The dissection plane was carried out at the acetabulum superficial to the labrum but intracapsular. The Medacta retractor was placed. This having been accomplished, reaming commenced to approximately 52 mm reamer. Cup was positioned and using computer navigation with the optical accelerometer device was verified. The cup was placed, found to be well fixed. Again, we were very concerned about the nature of the bone and the ability to retain the cup. Because of poor bone quality, screws were not employed. She has severe Kobe type C bone. Autograft bone grafting from the reamings, denuded of articular cartilage, was placed. At this point in time, there was found to be a fracture of the greater trochanter. The fracture was managed in an open fashion. The releases were accomplished. The iliopsoas tendon was released and the femur was delivered by rotation and flexion of the femur with the [facility] traction. The canal was found and sequential broaching was carried out. A +10, 52-mm outer bearing was employed. The hip was reduced and found to be stable in all planes. The component position was found to be acceptable. Verification of cup position was accomplished by computer navigation. Verification of position was also offered on image intensification views. The appropriate size stem was impacted, #4 with the +10 neck and the outer bearing. The hip was reduced and found to be stable in all planes. Again, open treatment of the trochanteric fracture was accomplished with nonabsorbable suture. The wound was thoroughly irrigated. The capsule was replaced. Closures with 0 Quill for the tensor fascia femoris, followed by 0 Vicryl, 2-0 Vicryl, and ludy for skin. The pins were removed on the contralateral iliac crest and closed with interrupted Vicryl and nylon. Compression dressing was applied. Position was found to be acceptable. The patient was transferred from the operating table to the stretcher having tolerated the procedure well. Again, because of the poor quality of the bone, the situation was discussed with the patient and the family postoperatively that secondary revision at some point may be necessary, again secondary to the poor bone quality, secondary to the poliomyelitis. The concept that open reduction and internal fixation would not have been appropriate for this patient, was confirmed by the character of bone and the bony quality at surgery, which was terrible. Tod Gonzalez MD
== END 2017-03-28 22:55 | DRG 470 ==
LOC: H.ER 11:20 → H.ERHOLD 15:51 → H.MEDSURG1 18:46
PROVIDERS: ADMIT Internal Medicine; ATTEND Internal Medicine
PROC: 0QS70ZZ Reposition Left Upper Femur, Open Approach (ICD-10-PCS; 2017-03-27)
PROC: 8E0YXBF Computer Assisted Procedure of Lower Extremity, With Fluoroscopy (ICD-10-PCS; 2017-03-27)
PROC: 0SRB0JZ Replacement of Left Hip Joint with Synthetic Substitute, Open Approach (ICD-10-PCS; principal; 2017-03-27 13:30)
DX: M84.652A Pathological fracture in other disease, left femur, initial encounter for fracture (principal); I11.9 Hypertensive heart disease without heart failure; B91 Sequelae of poliomyelitis; E78.5 Hyperlipidemia, unspecified; M85.80 Other specified disorders of bone density and structure, unspecified site; E78.00 Pure hypercholesterolemia, unspecified

== ENCOUNTER 2017-03-28 23:08 | Inpatient (IN) | payer MEDICARE ==
[2017-03-28 23:15] VITALS: BMI 26.2
[2017-03-29] MEDS: ceFAZolin 1 GM in Sodium Chloride 0.9% 100 ML IVPB SCH ×3 (05:03→20:46)
[2017-03-29] MEDS: Oxycodone/Acetaminophen 5/325 mg Tab PO PRN ×3 (05:05→23:07)
[2017-03-29] MEDS: Enoxaparin 40 mg Syringe SC SCH (08:44)
--- NOTE | 2017-03-29 12:08 | CP.PCM.HP ---
History of Present Illness - History of Present Illness History of Present Illness: Pt.is 71 y/o Cymraes speaking lady with hx of HTN, residual of polio in her lt lower limb. She c/o that day of admission she attempted to sit on top of her radiator and accidentally fell landing on her L side injuring her L hip. She has an acute fx of the hip. The patient underwent to hip surgery. In TCU for rehabilitation. Present on Admission - Present on Admission Any Indicators Present on Admission: No Review of Systems - Constitutional Constitutional: As Per HPI - EENT Eyes: As Per HPI - Cardiovascular Cardiovascular: As Per HPI - Respiratory Respiratory: As Per HPI - Gastrointestinal Gastrointestinal: As Per HPI - Musculoskeletal Musculoskeletal: As Per HPI - Neurological Neurological: As Per HPI - Psychiatric Psychiatric: As Per HPI Past Patient History - Past Medical History & Family History Past Medical History?: Yes - Past Social History Smoking Status: Never Smoked - CARDIAC Hx Hypercholesterolemia: Yes Hx Hypertension: Yes - PULMONARY Hx Respiratory Disorders: No - MUSCULOSKELETAL/RHEUMATOLOGICAL Hx Falls: Yes Hx Fractures: Yes Other/Comment: Polio - PSYCHIATRIC Hx Psychophysiologic Disorder: Yes Hx Anxiety: Yes Hx Substance Use: No - SURGICAL HISTORY Hx Orthopedic Surgery: Yes (left anterior THR) - ANESTHESIA Hx Anesthesia: Yes Hx Anesthesia Reactions: No Meds Allergies/Adverse Reactions: Allergies Allergy/AdvReac Type Severity Reaction Status Date / Time No Known Allergies Allergy Verified 03/26/17 11:23 Physical Exam - Constitutional Appears: Non-toxic - Head Exam Head Exam: ATRAUMATIC, NORMAL INSPECTION, NORMOCEPHALIC - Eye Exam Eye Exam: EOMI, Normal appearance, PERRL - ENT Exam ENT Exam: Mucous Membranes Moist - Neck Exam Neck exam: Positive for: Full Rom - Respiratory Exam Respiratory Exam: Clear to Auscultation Bilateral - Cardiovascular Exam Cardiovascular Exam: REGULAR RHYTHM, +S1, +S2 - GI/Abdominal Exam GI & Abdominal Exam: Normal Bowel Sounds - Neurological Exam Neurological exam: Alert, CN II-XII Intact, Oriented x3 - Psychiatric Exam Psychiatric exam: Normal Affect - Skin Skin Exam: Normal Color Results - Vital Signs Recent Vital Signs: Last Vital Signs Temp 98.6 F 03/29/17 10:30 Pulse 85 03/29/17 10:30 Resp 20 03/29/17 10:30 BP 106/67 03/29/17 10:30 Pulse Ox 90 L 03/29/17 10:30 Assessment & Plan (1) Hip fracture Status: Acute (2) Left displaced femoral neck fracture Status: Acute (3) Hyperlipemia Status: Chronic (4) Hypertensive cardiovascular disease Status: Chronic (5) Polio Status: Chronic (6) Osteoporosis Status: Chronic - Assessment and Plan (Free Text) Plan: Continue present rx.
[2017-03-29] MEDS ORDERED: ALENDRONATE 70 MG TAB PO SCH (12:15)
[2017-03-29 12:48] LABS: EOS # 0.1 K/uL (0.0-0.7); HEMATOCRIT 32.9 % (34.0-47.0)
[2017-03-29 12:59] LABS: CALCIUM 8.2 mg/dL (8.4-10.2); MAGNESIUM 1.8 MG/DL (1.6-2.3); PHOSPHOROUS 1.3 mg/dl (2.5-4.5)
[2017-03-29] MEDS: Citracal+D 315mg/250IU PO SCH (13:42)
--- NOTE | 2017-03-29 13:49 | CON ---
PHYSIATRY CONSULTATION HISTORY OF PRESENT ILLNESS: The patient is a 71-year-old Austrian-speaking female, status post fall, status post left displaced femoral neck fracture, status post surgery by Dr. Gonzalez, hip replacement, also history of polio, osteoporosis, hypertension. FAMILY HISTORY: Noncontributory. FUNCTIONAL STATUS: The patient claims she was independent in all activities previously. Even though she had a polio, was cooking, cleaning and was totally independent. MEDICATIONS: As per medical physician, Dr. Johnson. SOCIAL HISTORY: No history of drinking. No history of smoking. REVIEW OF SYSTEMS: The patient with complaints of some left hip discomfort. No other complaints at present. PHYSICAL EXAMINATION: VITAL SIGNS: Vitals are stable. NECK: Supple. CHEST: Symmetrical. HEART: Heart sounds S1 and S2. ABDOMEN: Abdominal area is benign. EXTREMITIES: No clubbing, cyanosis or edema. Left hip healing with dressing in place. Right lower extremity to a normal range of motion is limited. Muscle strength is fair except unable to move the right foot and also weakness in the whole left leg. Both upper extremities to a normal range of motion is functional. Muscle strength is good. Sensation to pinprick, light touch intact. Deep tendon reflexes 2+ bilaterally. LABORATORY DATA: Text. IMPRESSION: Impression for the patient left hip intertrochanteric fracture, displaced status post fall, history of status post surgery by Dr. Gonzalez; history of hyperlipidemia; hypertension; polio; osteoporosis. PLAN: Physical therapy, occupational therapy for range of motion strengthening, transfers, ambulation, gait training. Plan for Transitional Care Unit. Any further precautions as per Dr. Gonzalez to monitor the left hip incisional area and for pain management as well. Ashish Cantor MD
[2017-03-29 14:13] LABS: BASO % 0.2 % (0.0-2.0); EOS % 1.3 % (0.0-4.0); LYMPH % 10.7 % (20.0-40.0); MEAN CELL VOLUME 88.3 fl (81.0-99.0); MEAN CORPUSCULAR HEMOGLOBIN 29.8 pg (27.0-31.0); MEAN CORPUSCULAR HGB CONC 33.8 g/dL (33.0-37.0); MEAN PLATELET VOLUME 8.7 fl (7.2-11.7); MONO # 0.8 K/uL (0.0-0.8); MONO % 8.8 % (0.0-10.0); NEUT # 7.1 K/uL (1.8-7.0); NRBC % 0.1 % (0.0-0.0); RED CELL DISTRIBUTION WIDTH 16.9 % (11.5-14.5)
[2017-03-29 14:33] LABS: BLOOD UREA NITROGEN 10 mg/dl (7-17); CALCIUM 8.4 mg/dL (8.4-10.2); CARBON DIOXIDE 26 mmol/L (22-30); CHLORIDE 104 mmol/L (98-107); GFR AFRICAN-AMERICAN > 60; GLUCOSE,RANDOM 116 mg/dL (65-105); POTASSIUM 2.9 MMOL/L (3.6-5.0); SODIUM 138 mmol/l (132-148)
[2017-03-29] MEDS ORDERED: Potassium Chloride 20 mEq ER Tab PO STA (15:09)
--- NOTE | 2017-03-29 15:40 | CP.PCM.PN ---
Subjective - Date & Time of Evaluation Date of Evaluation: 03/29/17 Time of Evaluation: 15:38 - Subjective Subjective: Patient states she had a lot of pain with PT today, but is more comfortable in bed. Denies CP/SOB/dizziness/numbness/tingling. Objective - Vital Signs/Intake and Output Vital Signs (last 24 hours): Temp Pulse Resp BP Pulse Ox 98.6 F 85 20 106/67 90 L 03/29/17 10:30 03/29/17 10:30 03/29/17 10:30 03/29/17 10:30 03/29/17 10:30 - Medications Medications: Current Medications Acyclovir (Zovirax) 200 mg PO 5XD [facility] PRN Reason: Protocol Last Admin: 03/29/17 13:42 Dose: 200 mg Alendronate Sodium (Fosamax) 70 mg PO QWK [facility] Calcium/Vitamin D (Citracal+D 315mg/250iu) 2 tab PO DAILY [facility] Last Admin: 03/29/17 13:42 Dose: 2 tab Docusate Sodium (Colace) 100 mg PO BID [facility] Last Admin: 03/29/17 08:43 Dose: 100 mg Enoxaparin Sodium (Lovenox) 40 mg SC DAILY [facility] PRN Reason: Protocol Last Admin: 03/29/17 08:44 Dose: 40 mg Famotidine (Pepcid) 20 mg PO BID [facility] Last Admin: 03/29/17 08:44 Dose: 20 mg Cefazolin Sodium 1 gm/ Sodium (Chloride) 100 mls @ 100 mls/hr IVPB Q8@0500,1300 ,2100 [facility] PRN Reason: Protocol Last Admin: 03/29/17 12:18 Dose: 100 mls/hr Lactobacillus Acidophilus (Bacid Acidophilus) 1 cap PO BID [facility] Oxycodone/Acetaminophen (Percocet 5/325 Mg Tab) 1 tab PO Q4 PRN PRN Reason: Pain, moderate (4-7) Stop: 03/31/17 23:23 Last Admin: 03/29/17 12:17 Dose: 1 tab Potassium Chloride (K-Dur 20 Meq Er Tab) 40 meq PO ONCE ONE Stop: 03/29/17 19:01 - Labs Labs: 03/29/17 12:39 03/29/17 14:08 - Extremities Exam Additional comments: LLE: dressing saturated, changed. Incision intact, no erythema, moderate swelling to thigh, tension blister to anterior thigh, intact 2cm, no erythema. moderate ecchymosis to left thigh Right iliac crst incision sites clean and dry. no erythema. +ROM toes flexion only (baseline, polio) calves soft NT neg homans +DP/PT pulses Assessment and Plan (1) Left displaced femoral neck fracture Assessment & Plan: POD#2 s/p left THR -urinary retention post op, plan d/c centeno in am and voiding trial -PT/OT -VTE proph -d/w Dr. Gonzalez, agrees with above Status: Acute
[2017-03-29] MEDS: Lactobacillus Acidophilus 500 MU Cap PO SCH (17:19)
[2017-03-29] MEDS ORDERED: Potassium Chloride 20 mEq ER Tab PO ONE (19:00)
[2017-03-30] MEDS: ceFAZolin 1 GM in Sodium Chloride 0.9% 100 ML IVPB SCH (05:56)
[2017-03-30] MEDS: Oxycodone/Acetaminophen 5/325 mg Tab PO PRN ×2 (07:16→22:43)
[2017-03-30] MEDS: Lactobacillus Acidophilus 500 MU Cap PO SCH ×2 (08:01→16:45)
[2017-03-30] MEDS: Enoxaparin 40 mg Syringe SC SCH (08:04)
[2017-03-30] MEDS: Citracal+D 315mg/250IU PO SCH (08:05)
[2017-03-30 08:35] LABS: BLOOD UREA NITROGEN 8 mg/dl (7-17); CARBON DIOXIDE 29 mmol/L (22-30); CHLORIDE 106 mmol/L (98-107); GFR AFRICAN-AMERICAN > 60; GLUCOSE,RANDOM 108 mg/dL (65-105); POTASSIUM 3.6 MMOL/L (3.6-5.0); SODIUM 139 mmol/l (132-148)
[2017-03-30 12:26] LABS: BASO # 0.1 K/uL (0.0-0.2); BASO % 0.9 % (0.0-2.0); EOS # 0.2 K/uL (0.0-0.7); EOS % 3.1 % (0.0-4.0); HEMATOCRIT 30.5 % (34.0-47.0); LYMPH # 1.2 K/uL (1.0-4.3); LYMPH % 14.9 % (20.0-40.0); MEAN CELL VOLUME 89.1 fl (81.0-99.0); MEAN CORPUSCULAR HEMOGLOBIN 29.9 pg (27.0-31.0); MEAN CORPUSCULAR HGB CONC 33.5 g/dL (33.0-37.0); MONO # 0.6 K/uL (0.0-0.8); MONO % 7.4 % (0.0-10.0); NEUT # 5.9 K/uL (1.8-7.0); NEUT % 73.7 % (50.0-75.0); NRBC % 0.1 % (0.0-0.0); WHITE BLOOD COUNT 8.1 K/uL (4.8-10.8)
--- NOTE | 2017-03-30 12:47 | CP.PCM.PN ---
Subjective - Date & Time of Evaluation Date of Evaluation: 03/30/17 Time of Evaluation: 12:47 - Subjective Subjective: Patient comfortable not in distress. Objective - Vital Signs/Intake and Output Vital Signs (last 24 hours): Temp Pulse Resp BP Pulse Ox 99.7 F H 88 18 85/59 L 93 L 03/30/17 08:00 03/30/17 08:00 03/30/17 08:00 03/30/17 09:25 03/30/17 08:00 - Medications Medications: Current Medications Acyclovir (Zovirax) 200 mg PO 5XD [facility] PRN Reason: Protocol Last Admin: 03/30/17 08:05 Dose: 200 mg Alendronate Sodium (Fosamax) 70 mg PO QWK [facility] Last Admin: 03/29/17 17:20 Dose: 70 mg Calcium/Vitamin D (Citracal+D 315mg/250iu) 2 tab PO DAILY [facility] Last Admin: 03/30/17 08:05 Dose: 2 tab Docusate Sodium (Colace) 100 mg PO BID [facility] Last Admin: 03/30/17 08:01 Dose: 100 mg Enoxaparin Sodium (Lovenox) 40 mg SC DAILY [facility] PRN Reason: Protocol Last Admin: 03/30/17 08:04 Dose: 40 mg Famotidine (Pepcid) 20 mg PO BID [facility] Last Admin: 03/30/17 08:01 Dose: 20 mg Ferrous Sulfate (Feosol) 325 mg PO BID [facility] Folic Acid (Folic Acid) 1 mg PO DAILY [facility] Dextrose/Sodium Chloride (Dextrose 5%/0.9% Ns 1000 Ml) 1,000 mls @ 100 mls/hr IV .Q10H [facility] Stop: 03/31/17 12:15 Clindamycin Phosphate 300 mg/ (Sodium Chloride) 52 mls @ 52 mls/hr IVPB Q8 [facility] PRN Reason: Protocol Ciprofloxacin (Cipro 400mg/200ml Dsw) 400 mg in 200 mls @ 200 mls/hr IVPB Q12@ 0500,1700 [facility] Lactobacillus Acidophilus (Bacid Acidophilus) 1 cap PO BID [facility] Last Admin: 03/30/17 08:01 Dose: 1 cap Lactobacillus Acidophilus (Bacid Acidophilus) 1 cap PO BID [facility] Oxycodone/Acetaminophen (Percocet 5/325 Mg Tab) 1 tab PO Q8 [facility] Stop: 04/02/17 17:01 Thiamine HCl (Vitamin B1 Tab) 100 mg PO DAILY [facility] - Labs Labs: 03/30/17 12:19 03/30/17 08:06 - Constitutional Appears: Non-toxic - Head Exam Head Exam: ATRAUMATIC, NORMAL INSPECTION, NORMOCEPHALIC - Eye Exam Eye Exam: Normal appearance - ENT Exam ENT Exam: Mucous Membranes Moist - Neck Exam Neck Exam: Full ROM - Respiratory Exam Respiratory Exam: Clear to Ausculation Bilateral - Cardiovascular Exam Cardiovascular Exam: REGULAR RHYTHM, +S1, +S2 - GI/Abdominal Exam GI & Abdominal Exam: Soft, Normal Bowel Sounds - Extremities Exam Extremities Exam: Normal Inspection Additional comments: surgical wound + erythema + edema. - Neurological Exam Neurological Exam: Alert, Awake, CN II-XII Intact, Oriented x3 - Psychiatric Exam Psychiatric exam: Normal Affect - Skin Skin Exam: Normal Color Assessment and Plan (1) Hip fracture Status: Acute (2) Left displaced femoral neck fracture Status: Acute (3) Hyperlipemia Status: Chronic (4) Hypertensive cardiovascular disease Status: Chronic (5) Polio Status: Chronic (6) Osteoporosis Status: Chronic - Assessment and Plan (Free Text) Plan: As per orders.
[2017-03-30] MEDS: Oxycodone/Acetaminophen 5/325 mg Tab PO SCH ×2 (15:40→16:40)
[2017-03-30] MEDS: Clindamycin in NS 300 MG/50 ML BAG IVPB SCH ×2 (16:34)
[2017-03-30] MEDS: Ciprofloxacin 400mg/200ml D5W 400 MG/200 ML BAG IVPB SCH (16:35)
[2017-03-30] MEDS: Dextrose 5%/0.9% NS 1,000 ML IV SCH ×2 (16:36→21:54)
[2017-03-30] MEDS ORDERED: Oxycodone/Acetaminophen 5/325 mg Tab PO PRN (20:58)
[2017-03-31] MEDS: Clindamycin in NS 300 MG/50 ML BAG IVPB SCH ×3 (01:13→16:46)
[2017-03-31] MEDS: Ciprofloxacin 400mg/200ml D5W 400 MG/200 ML BAG IVPB SCH ×2 (05:19→16:46)
[2017-03-31] MEDS: Citracal+D 315mg/250IU PO SCH (08:41)
[2017-03-31] MEDS: Enoxaparin 40 mg Syringe SC SCH (08:42)
[2017-03-31] MEDS: Lactobacillus Acidophilus 500 MU Cap PO SCH ×2 (08:44→16:47)
[2017-03-31] MEDS: Dextrose 5%/0.9% NS 1,000 ML IV SCH (08:48)
[2017-03-31] MEDS: Oxycodone/Acetaminophen 5/325 mg Tab PO PRN ×2 (10:47→21:27)
--- NOTE | 2017-03-31 10:51 | CP.PCM.PN ---
Subjective - Date & Time of Evaluation Date of Evaluation: 03/31/17 Time of Evaluation: 10:49 - Subjective Subjective: Patient complaining of continued significant hip pain. She is unable to lift leg without pain. Denies CP/SOB/dizziness. Objective - Vital Signs/Intake and Output Vital Signs (last 24 hours): Temp Pulse Resp BP Pulse Ox 97.8 F 87 20 133/86 97 03/30/17 21:52 03/30/17 21:52 03/30/17 21:52 03/30/17 21:52 03/30/17 21:52 - Medications Medications: Current Medications Acyclovir (Zovirax) 200 mg PO 5XD [facility] PRN Reason: Protocol Last Admin: 03/31/17 08:41 Dose: 200 mg Alendronate Sodium (Fosamax) 70 mg PO QWK [facility] Last Admin: 03/29/17 17:20 Dose: 70 mg Calcium/Vitamin D (Citracal+D 315mg/250iu) 2 tab PO DAILY [facility] Last Admin: 03/31/17 08:41 Dose: 2 tab Docusate Sodium (Colace) 100 mg PO BID [facility] Last Admin: 03/31/17 08:42 Dose: 100 mg Enoxaparin Sodium (Lovenox) 40 mg SC DAILY [facility] PRN Reason: Protocol Last Admin: 03/31/17 08:42 Dose: 40 mg Famotidine (Pepcid) 20 mg PO BID [facility] Last Admin: 03/31/17 08:42 Dose: 20 mg Ferrous Sulfate (Feosol) 325 mg PO BID [facility] Last Admin: 03/31/17 08:42 Dose: 325 mg Folic Acid (Folic Acid) 1 mg PO DAILY [facility] Last Admin: 03/31/17 08:42 Dose: 1 mg Dextrose/Sodium Chloride (Dextrose 5%/0.9% Ns 1000 Ml) 1,000 mls @ 100 mls/hr IV .Q10H [facility] Stop: 03/31/17 12:15 Last Admin: 03/31/17 08:48 Dose: 100 mls/hr Clindamycin in NS (Clindamycin 300 Mg/50 Ml-Ns) 300 mg in 50 mls @ 50 mls/hr IVPB Q8 [facility] PRN Reason: Protocol Last Admin: 03/31/17 08:44 Dose: 50 mls/hr Ciprofloxacin (Cipro 400mg/200ml Dsw) 400 mg in 200 mls @ 200 mls/hr IVPB Q12@ 0500,1700 [facility] Last Admin: 03/31/17 05:19 Dose: 200 mls/hr Lactobacillus Acidophilus (Bacid Acidophilus) 1 cap PO BID [facility] Last Admin: 03/31/17 08:44 Dose: 1 cap Oxycodone/Acetaminophen (Percocet 5/325 Mg Tab) 1 tab PO Q6 PRN PRN Reason: Pain, severe (8-10) Stop: 04/02/17 20:45 Last Admin: 03/31/17 10:47 Dose: 1 tab Oxycodone/Acetaminophen (Percocet 5/325 Mg Tab) 1 tab PO Q6 PRN PRN Reason: Pain, severe (8-10) Stop: 04/02/17 20:59 Thiamine HCl (Vitamin B1 Tab) 100 mg PO DAILY [facility] Last Admin: 03/31/17 08:42 Dose: 100 mg - Labs Labs: 03/30/17 12:19 03/30/17 08:06 - Extremities Exam Additional comments: left thigh: still swollen. No improvement. More ecchymosis noted. blister still intact, but not mild erythema around. noted serous drainage, moderate amount as changed last night per patient. thigh swollen but not tense +ROM ankl;e/toes, sensation intact, +DP/PT pulses calves soft NT neg homans Assessment and Plan (1) Left displaced femoral neck fracture Assessment & Plan: POD#4 s/p left THR -still noted thigh swelling and drainage -d/w Dr. Gonzalez, hold PT today, ice, IV antibiotics (started on cipro/clinda Dr. Johnson yesterday, Dr. Gonzalez aware) -hold lovenox -sequentials at all times -encourage ankle pumps -betadyne wet to dry twice daily until drainage lessens -ice -will follow -monitor CBC, should be stabilized by POD#4 Status: Acute
[2017-03-31 13:11] LABS: HEMATOCRIT 32.1 % (34.0-47.0); MEAN CELL VOLUME 87.1 fl (81.0-99.0); MEAN CORPUSCULAR HEMOGLOBIN 29.7 pg (27.0-31.0); MEAN CORPUSCULAR HGB CONC 34.1 g/dL (33.0-37.0); RED CELL DISTRIBUTION WIDTH 16.1 % (11.5-14.5); WHITE BLOOD COUNT 7.6 K/uL (4.8-10.8)
--- NOTE | 2017-03-31 13:14 | CP.PCM.PN ---
Subjective - Date & Time of Evaluation Date of Evaluation: 03/31/17 Time of Evaluation: 13:15 - Subjective Subjective: Still c/o pain in the surgical site. The pain is triggered by movement of the articulation. Objective - Vital Signs/Intake and Output Vital Signs (last 24 hours): Temp Pulse Resp BP Pulse Ox 99.3 F 91 H 20 135/88 97 03/31/17 08:00 03/31/17 08:00 03/31/17 08:00 03/31/17 08:00 03/30/17 21:52 Intake and Output: 03/31/17 03/31/17 11:59 23:59 Intake Total 1200 Balance 1200 - Medications Medications: Current Medications Acyclovir (Zovirax) 200 mg PO 5XD [facility] PRN Reason: Protocol Last Admin: 03/31/17 08:41 Dose: 200 mg Alendronate Sodium (Fosamax) 70 mg PO QWK [facility] Last Admin: 03/29/17 17:20 Dose: 70 mg Calcium/Vitamin D (Citracal+D 315mg/250iu) 2 tab PO DAILY [facility] Last Admin: 03/31/17 08:41 Dose: 2 tab Docusate Sodium (Colace) 100 mg PO BID [facility] Last Admin: 03/31/17 08:42 Dose: 100 mg Enoxaparin Sodium (Lovenox) 40 mg SC DAILY [facility] PRN Reason: Protocol Last Admin: 03/31/17 08:42 Dose: 40 mg Famotidine (Pepcid) 20 mg PO BID [facility] Last Admin: 03/31/17 08:42 Dose: 20 mg Ferrous Sulfate (Feosol) 325 mg PO BID [facility] Last Admin: 03/31/17 08:42 Dose: 325 mg Folic Acid (Folic Acid) 1 mg PO DAILY [facility] Last Admin: 03/31/17 08:42 Dose: 1 mg Clindamycin in NS (Clindamycin 300 Mg/50 Ml-Ns) 300 mg in 50 mls @ 50 mls/hr IVPB Q8 [facility] PRN Reason: Protocol Last Admin: 03/31/17 08:44 Dose: 50 mls/hr Ciprofloxacin (Cipro 400mg/200ml Dsw) 400 mg in 200 mls @ 200 mls/hr IVPB Q12@ 0500,1700 [facility] Last Admin: 03/31/17 05:19 Dose: 200 mls/hr Lactobacillus Acidophilus (Bacid Acidophilus) 1 cap PO BID [facility] Last Admin: 03/31/17 08:44 Dose: 1 cap Oxycodone/Acetaminophen (Percocet 5/325 Mg Tab) 1 tab PO Q6 PRN PRN Reason: Pain, severe (8-10) Stop: 04/02/17 20:45 Last Admin: 03/31/17 10:47 Dose: 1 tab Oxycodone/Acetaminophen (Percocet 5/325 Mg Tab) 1 tab PO Q6 PRN PRN Reason: Pain, severe (8-10) Stop: 04/02/17 20:59 Thiamine HCl (Vitamin B1 Tab) 100 mg PO DAILY [facility] Last Admin: 03/31/17 08:42 Dose: 100 mg - Labs Labs: 03/30/17 12:19 03/30/17 08:06 - Constitutional Appears: No Acute Distress - Head Exam Head Exam: ATRAUMATIC, NORMAL INSPECTION, NORMOCEPHALIC - Eye Exam Eye Exam: Normal appearance - ENT Exam ENT Exam: Mucous Membranes Moist - Neck Exam Neck Exam: Full ROM - Respiratory Exam Respiratory Exam: Clear to Ausculation Bilateral - Cardiovascular Exam Cardiovascular Exam: REGULAR RHYTHM, +S1, +S2 - GI/Abdominal Exam GI & Abdominal Exam: Soft, Normal Bowel Sounds - Extremities Exam Additional comments: At the level of the surgical site there is a persistent erythema and edema, tender, same siero hematic discharge. This condition appears improving with present rx. - Neurological Exam Neurological Exam: Alert, Awake, CN II-XII Intact, Oriented x3 - Psychiatric Exam Psychiatric exam: Normal Affect, Normal Mood - Skin Skin Exam: Normal Color Assessment and Plan (1) Hip fracture Status: Acute (2) Left displaced femoral neck fracture Status: Acute (3) Hyperlipemia Status: Chronic (4) Hypertensive cardiovascular disease Status: Chronic (5) Polio Status: Chronic (6) Osteoporosis Status: Chronic
--- NOTE | 2017-03-31 13:42 | CP.PCM.PN ---
Subjective - Date & Time of Evaluation Date of Evaluation: 03/31/17 Time of Evaluation: 12:30 - Subjective Subjective: no acute complaints at present, mild discomfort Objective - Vital Signs/Intake and Output Vital Signs (last 24 hours): Temp Pulse Resp BP Pulse Ox 99.3 F 91 H 20 135/88 97 03/31/17 08:00 03/31/17 08:00 03/31/17 08:00 03/31/17 08:00 03/30/17 21:52 Intake and Output: 03/31/17 03/31/17 06:59 18:59 Intake Total 1200 Balance 1200 - Medications Medications: Current Medications Alendronate Sodium (Fosamax) 70 mg PO QWK [facility] Last Admin: 03/29/17 17:20 Dose: 70 mg Calcium/Vitamin D (Citracal+D 315mg/250iu) 2 tab PO DAILY [facility] Last Admin: 03/31/17 08:41 Dose: 2 tab Docusate Sodium (Colace) 100 mg PO BID [facility] Last Admin: 03/31/17 08:42 Dose: 100 mg Enoxaparin Sodium (Lovenox) 40 mg SC DAILY [facility] PRN Reason: Protocol Last Admin: 03/31/17 08:42 Dose: 40 mg Famotidine (Pepcid) 20 mg PO BID [facility] Last Admin: 03/31/17 08:42 Dose: 20 mg Ferrous Sulfate (Feosol) 325 mg PO BID [facility] Last Admin: 03/31/17 08:42 Dose: 325 mg Folic Acid (Folic Acid) 1 mg PO DAILY [facility] Last Admin: 03/31/17 08:42 Dose: 1 mg Clindamycin in NS (Clindamycin 300 Mg/50 Ml-Ns) 300 mg in 50 mls @ 50 mls/hr IVPB Q8 [facility] PRN Reason: Protocol Last Admin: 03/31/17 08:44 Dose: 50 mls/hr Ciprofloxacin (Cipro 400mg/200ml Dsw) 400 mg in 200 mls @ 200 mls/hr IVPB Q12@ 0500,1700 [facility] Last Admin: 03/31/17 05:19 Dose: 200 mls/hr Lactobacillus Acidophilus (Bacid Acidophilus) 1 cap PO BID [facility] Last Admin: 03/31/17 08:44 Dose: 1 cap Oxycodone/Acetaminophen (Percocet 5/325 Mg Tab) 1 tab PO Q6 PRN PRN Reason: Pain, severe (8-10) Stop: 04/02/17 20:45 Last Admin: 03/31/17 10:47 Dose: 1 tab Oxycodone/Acetaminophen (Percocet 5/325 Mg Tab) 1 tab PO Q6 PRN PRN Reason: Pain, severe (8-10) Stop: 04/02/17 20:59 Thiamine HCl (Vitamin B1 Tab) 100 mg PO DAILY [facility] Last Admin: 03/31/17 08:42 Dose: 100 mg - Labs Labs: 03/31/17 12:31 03/30/17 08:06 - Head Exam Head Exam: ATRAUMATIC, NORMAL INSPECTION, NORMOCEPHALIC - Eye Exam Eye Exam: EOMI, Normal appearance, PERRL Pupil Exam: NORMAL ACCOMODATION - ENT Exam ENT Exam: Mucous Membranes Moist, Normal Exam - Neck Exam Neck Exam: Full ROM - Respiratory Exam Respiratory Exam: Clear to Ausculation Bilateral, NORMAL BREATHING PATTERN - Cardiovascular Exam Cardiovascular Exam: REGULAR RHYTHM - GI/Abdominal Exam GI & Abdominal Exam: Soft, Normal Bowel Sounds - Rectal Exam Rectal Exam: NORMAL INSPECTION - Exam External exam: NORMAL EXTERNAL EXAM - Extremities Exam Extremities Exam: Normal Capillary Refill, Normal Inspection - Back Exam Back Exam: NORMAL INSPECTION - Neurological Exam Neurological Exam: Alert, Awake Neuro motor strength exam: Left Upper Extremity: 4, Right Upper Extremity: 4, Left Lower Extremity: 4, Right Lower Extremity: 3 - Psychiatric Exam Psychiatric exam: Normal Affect, Normal Mood - Skin Skin Exam: Dry, Intact Assessment and Plan (1) Osteoporosis Status: Chronic (2) Hip fracture Status: Acute (3) Left displaced femoral neck fracture Assessment & Plan: plan for physical, occupational therapy program Status: Acute (4) Hyperlipemia Status: Chronic (5) Hypertensive cardiovascular disease Status: Chronic (6) Polio Status: Chronic
[2017-03-31] MEDS ORDERED: Povidone Iodine Topical 10% Sol ONE (14:20)
[2017-04-01] MEDS: Clindamycin in NS 300 MG/50 ML BAG IVPB SCH ×3 (00:43→16:22)
[2017-04-01] MEDS: Ciprofloxacin 400mg/200ml D5W 400 MG/200 ML BAG IVPB SCH ×2 (04:35→17:28)
[2017-04-01] MEDS: Oxycodone/Acetaminophen 5/325 mg Tab PO PRN ×3 (05:26→21:07)
[2017-04-01 07:12] LABS: BASO % 0.5 % (0.0-2.0); EOS # 0.3 K/uL (0.0-0.7); EOS % 4.2 % (0.0-4.0); HEMATOCRIT 30.8 % (34.0-47.0); LYMPH # 0.8 K/uL (1.0-4.3); LYMPH % 13.6 % (20.0-40.0); MEAN CELL VOLUME 87.9 fl (81.0-99.0); MEAN CORPUSCULAR HGB CONC 34.1 g/dL (33.0-37.0); MEAN PLATELET VOLUME 7.9 fl (7.2-11.7); MONO # 0.6 K/uL (0.0-0.8); MONO % 10.2 % (0.0-10.0); NEUT # 4.4 K/uL (1.8-7.0); NEUT % 71.5 % (50.0-75.0); RED CELL DISTRIBUTION WIDTH 16.2 % (11.5-14.5); WHITE BLOOD COUNT 6.1 K/uL (4.8-10.8)
[2017-04-01 07:20] LABS: BLOOD UREA NITROGEN 6 mg/dl (7-17); CALCIUM 8.3 mg/dL (8.4-10.2); CARBON DIOXIDE 29 mmol/L (22-30); CHLORIDE 105 mmol/L (98-107); GFR AFRICAN-AMERICAN > 60; GLUCOSE,RANDOM 114 mg/dL (65-105); POTASSIUM 3.5 MMOL/L (3.6-5.0); SODIUM 141 mmol/l (132-148)
[2017-04-01] MEDS ORDERED: Potassium Chloride 20 mEq ER Tab PO ONE (07:26)
[2017-04-01] MEDS: Lactobacillus Acidophilus 500 MU Cap PO SCH ×2 (08:30→16:30)
[2017-04-01] MEDS: Citracal+D 315mg/250IU PO SCH (08:31)
--- NOTE | 2017-04-01 09:53 | CP.PCM.PN ---
Subjective - Date & Time of Evaluation Date of Evaluation: 04/01/17 Time of Evaluation: 09:35 - Subjective Subjective: S- pt continues to improve/post op discomfort better Objective - Vital Signs/Intake and Output Vital Signs (last 24 hours): Temp Pulse Resp BP Pulse Ox 97.5 F L 92 H 18 117/74 98 04/01/17 08:29 04/01/17 08:29 04/01/17 08:29 04/01/17 08:29 04/01/17 08:29 - Medications Medications: Current Medications Alendronate Sodium (Fosamax) 70 mg PO QWK [facility] Last Admin: 03/29/17 17:20 Dose: 70 mg Calcium/Vitamin D (Citracal+D 315mg/250iu) 2 tab PO DAILY [facility] Last Admin: 04/01/17 08:31 Dose: 2 tab Docusate Sodium (Colace) 100 mg PO BID [facility] Last Admin: 04/01/17 08:32 Dose: 100 mg Enoxaparin Sodium (Lovenox) 40 mg SC DAILY [facility] PRN Reason: Protocol Last Admin: 03/31/17 08:42 Dose: 40 mg Famotidine (Pepcid) 20 mg PO BID [facility] Last Admin: 04/01/17 08:32 Dose: 20 mg Ferrous Sulfate (Feosol) 325 mg PO BID [facility] Last Admin: 04/01/17 08:32 Dose: 325 mg Folic Acid (Folic Acid) 1 mg PO DAILY [facility] Last Admin: 04/01/17 08:32 Dose: 1 mg Clindamycin in NS (Clindamycin 300 Mg/50 Ml-Ns) 300 mg in 50 mls @ 50 mls/hr IVPB Q8 [facility] PRN Reason: Protocol Last Admin: 04/01/17 08:31 Dose: 50 mls/hr Ciprofloxacin (Cipro 400mg/200ml Dsw) 400 mg in 200 mls @ 200 mls/hr IVPB Q12@ 0500,1700 [facility] Last Admin: 04/01/17 04:35 Dose: 200 mls/hr Lactobacillus Acidophilus (Bacid Acidophilus) 1 cap PO BID [facility] Last Admin: 04/01/17 08:30 Dose: 1 cap Oxycodone/Acetaminophen (Percocet 5/325 Mg Tab) 1 tab PO Q6 PRN PRN Reason: Pain, severe (8-10) Stop: 04/02/17 20:45 Last Admin: 04/01/17 05:26 Dose: 1 tab Oxycodone/Acetaminophen (Percocet 5/325 Mg Tab) 1 tab PO Q6 PRN PRN Reason: Pain, severe (8-10) Stop: 04/02/17 20:59 Thiamine HCl (Vitamin B1 Tab) 100 mg PO DAILY [facility] Last Admin: 04/01/17 08:32 Dose: 100 mg - Labs Labs: 04/01/17 05:25 04/01/17 05:25 - Skin Additional comments: Objective systemic-wnl Musculoskekltal stance/gait- defrred L hip wopund benign no drainage swelling better Assessment and Plan - Assessment and Plan (Free Text) Assessment: A- s/p L THR for fx P- OOB compression boots ASA 81 mg po od resume physio STRICT NON WEIGHT BEARING WITH WALKER
--- NOTE | 2017-04-01 11:02 | CP.PCM.PN ---
Subjective - Date & Time of Evaluation Date of Evaluation: 04/01/17 Time of Evaluation: 11:02 - Subjective Subjective: Still same discomfort at the surgical site Objective - Vital Signs/Intake and Output Vital Signs (last 24 hours): Temp Pulse Resp BP Pulse Ox 97.5 F L 92 H 18 117/74 98 04/01/17 08:29 04/01/17 08:29 04/01/17 08:29 04/01/17 08:29 04/01/17 08:29 - Medications Medications: Current Medications Alendronate Sodium (Fosamax) 70 mg PO QWK [facility] Last Admin: 03/29/17 17:20 Dose: 70 mg Aspirin (Aspirin Chewable) 81 mg PO DAILY [facility] Calcium/Vitamin D (Citracal+D 315mg/250iu) 2 tab PO DAILY [facility] Last Admin: 04/01/17 08:31 Dose: 2 tab Docusate Sodium (Colace) 100 mg PO BID [facility] Last Admin: 04/01/17 08:32 Dose: 100 mg Enoxaparin Sodium (Lovenox) 40 mg SC DAILY [facility] PRN Reason: Protocol Last Admin: 03/31/17 08:42 Dose: 40 mg Famotidine (Pepcid) 20 mg PO BID [facility] Last Admin: 04/01/17 08:32 Dose: 20 mg Ferrous Sulfate (Feosol) 325 mg PO BID [facility] Last Admin: 04/01/17 08:32 Dose: 325 mg Folic Acid (Folic Acid) 1 mg PO DAILY [facility] Last Admin: 04/01/17 08:32 Dose: 1 mg Clindamycin in NS (Clindamycin 300 Mg/50 Ml-Ns) 300 mg in 50 mls @ 50 mls/hr IVPB Q8 [facility] PRN Reason: Protocol Last Admin: 04/01/17 08:31 Dose: 50 mls/hr Ciprofloxacin (Cipro 400mg/200ml Dsw) 400 mg in 200 mls @ 200 mls/hr IVPB Q12@ 0500,1700 [facility] Last Admin: 04/01/17 04:35 Dose: 200 mls/hr Lactobacillus Acidophilus (Bacid Acidophilus) 1 cap PO BID [facility] Last Admin: 04/01/17 08:30 Dose: 1 cap Oxycodone/Acetaminophen (Percocet 5/325 Mg Tab) 1 tab PO Q6 PRN PRN Reason: Pain, severe (8-10) Stop: 04/02/17 20:45 Last Admin: 04/01/17 05:26 Dose: 1 tab Oxycodone/Acetaminophen (Percocet 5/325 Mg Tab) 1 tab PO Q6 PRN PRN Reason: Pain, severe (8-10) Stop: 04/02/17 20:59 Thiamine HCl (Vitamin B1 Tab) 100 mg PO DAILY [facility] Last Admin: 04/01/17 08:32 Dose: 100 mg - Labs Labs: 04/01/17 05:25 04/01/17 05:25 - Constitutional Appears: Non-toxic - Head Exam Head Exam: ATRAUMATIC, NORMAL INSPECTION, NORMOCEPHALIC - ENT Exam ENT Exam: Mucous Membranes Moist - Neck Exam Neck Exam: Full ROM - Respiratory Exam Respiratory Exam: Clear to Ausculation Bilateral - Cardiovascular Exam Cardiovascular Exam: REGULAR RHYTHM, +S1, +S2 - GI/Abdominal Exam GI & Abdominal Exam: Soft, Normal Bowel Sounds - Extremities Exam Additional comments: erythema and edema with tenderness in surgical site - Neurological Exam Neurological Exam: Alert, Awake, CN II-XII Intact, Oriented x3 - Psychiatric Exam Psychiatric exam: Normal Affect - Skin Skin Exam: Normal Color Assessment and Plan (1) Hip fracture Status: Acute (2) Left displaced femoral neck fracture Status: Acute (3) Hyperlipemia Status: Chronic (4) Hypertensive cardiovascular disease Status: Chronic (5) Polio Status: Chronic (6) Osteoporosis Status: Chronic
[2017-04-01 16:01] VITALS: RESP 20
[2017-04-01] MEDS ORDERED: Meropenem 1 GM in Sodium Chloride 0.9% 100 ML IVPB SCH (18:45)
--- NOTE | 2017-04-01 18:54 | CP.PCM.PN ---
Subjective - Date & Time of Evaluation Date of Evaluation: 04/01/17 Time of Evaluation: 18:50 - Subjective Subjective: iID NOTE HAVE ORDERED CT SCAN INCREASED DOSE OF CLINDAMYCIN,D/JOSEPH CIPRO STARTED MEROPENEM Objective - Vital Signs/Intake and Output Vital Signs (last 24 hours): Temp Pulse Resp BP Pulse Ox 97.7 F 85 20 130/85 97 04/01/17 16:00 04/01/17 16:00 04/01/17 16:00 04/01/17 16:00 04/01/17 16:00 Intake and Output: 04/01/17 04/01/17 06:59 18:59 Intake Total 700 Output Total 550 Balance 150 - Medications Medications: Current Medications Alendronate Sodium (Fosamax) 70 mg PO QWK [facility] Last Admin: 03/29/17 17:20 Dose: 70 mg Aspirin (Aspirin Chewable) 81 mg PO DAILY [facility] Last Admin: 04/01/17 16:29 Dose: 81 mg Calcium/Vitamin D (Citracal+D 315mg/250iu) 2 tab PO DAILY [facility] Last Admin: 04/01/17 08:31 Dose: 2 tab Docusate Sodium (Colace) 100 mg PO BID [facility] Last Admin: 04/01/17 16:23 Dose: 100 mg Enoxaparin Sodium (Lovenox) 40 mg SC DAILY [facility] PRN Reason: Protocol Last Admin: 03/31/17 08:42 Dose: 40 mg Famotidine (Pepcid) 20 mg PO BID [facility] Last Admin: 04/01/17 16:23 Dose: 20 mg Ferrous Sulfate (Feosol) 325 mg PO BID [facility] Last Admin: 04/01/17 16:23 Dose: 325 mg Folic Acid (Folic Acid) 1 mg PO DAILY [facility] Last Admin: 04/01/17 08:32 Dose: 1 mg Meropenem 1 gm/ Sodium (Chloride) 100 mls @ 100 mls/hr IVPB Q12H [facility] PRN Reason: Protocol Clindamycin Phosphate (Cleocin In Normal Saline) 600 mg in 50 mls @ 50 mls/hr IVPB Q8 [facility] PRN Reason: Protocol Lactobacillus Acidophilus (Bacid Acidophilus) 1 cap PO BID [facility] Last Admin: 04/01/17 16:30 Dose: 1 cap Oxycodone/Acetaminophen (Percocet 5/325 Mg Tab) 1 tab PO Q6 PRN PRN Reason: Pain, severe (8-10) Stop: 04/02/17 20:45 Last Admin: 04/01/17 11:03 Dose: 1 tab Oxycodone/Acetaminophen (Percocet 5/325 Mg Tab) 1 tab PO Q6 PRN PRN Reason: Pain, severe (8-10) Stop: 04/02/17 20:59 Thiamine HCl (Vitamin B1 Tab) 100 mg PO DAILY [facility] Last Admin: 04/01/17 08:32 Dose: 100 mg - Labs Labs: 04/01/17 05:25 04/01/17 05:25
[2017-04-02] MEDS: Clindamycin 600mg/50ml NS 600 MG/50 ML BAG IVPB SCH ×3 (00:17→16:20)
[2017-04-02] MEDS: Meropenem 1 GM in Sodium Chloride 0.9% 100 ML IVPB SCH ×2 (04:58→16:20)
[2017-04-02] MEDS: Oxycodone/Acetaminophen 5/325 mg Tab PO PRN ×3 (05:03→22:10)
[2017-04-02] MEDS: Lactobacillus Acidophilus 500 MU Cap PO SCH ×2 (08:42→16:21)
[2017-04-02] MEDS: Citracal+D 315mg/250IU PO SCH (08:43)
--- NOTE | 2017-04-02 11:14 | CP.PCM.PN ---
Subjective - Date & Time of Evaluation Date of Evaluation: 04/02/17 Time of Evaluation: 11:15 - Subjective Subjective: Still c/o tenderness in the surgical site. Less edema less erythema. Pending CT scan. Objective - Vital Signs/Intake and Output Vital Signs (last 24 hours): Temp Pulse Resp BP Pulse Ox 99.3 F 98 H 20 145/91 H 96 04/01/17 19:16 04/01/17 19:16 04/01/17 19:16 04/01/17 19:16 04/01/17 19:16 - Medications Medications: Current Medications Alendronate Sodium (Fosamax) 70 mg PO QWK [facility] Last Admin: 03/29/17 17:20 Dose: 70 mg Aspirin (Aspirin Chewable) 81 mg PO DAILY [facility] Last Admin: 04/02/17 08:43 Dose: 81 mg Calcium/Vitamin D (Citracal+D 315mg/250iu) 2 tab PO DAILY [facility] Last Admin: 04/02/17 08:43 Dose: 2 tab Docusate Sodium (Colace) 100 mg PO BID [facility] Last Admin: 04/02/17 08:43 Dose: 100 mg Enoxaparin Sodium (Lovenox) 40 mg SC DAILY [facility] PRN Reason: Protocol Last Admin: 03/31/17 08:42 Dose: 40 mg Famotidine (Pepcid) 20 mg PO BID [facility] Last Admin: 04/02/17 08:43 Dose: 20 mg Ferrous Sulfate (Feosol) 325 mg PO BID [facility] Last Admin: 04/02/17 08:43 Dose: 325 mg Folic Acid (Folic Acid) 1 mg PO DAILY [facility] Last Admin: 04/02/17 08:43 Dose: 1 mg Clindamycin Phosphate (Cleocin In Normal Saline) 600 mg in 50 mls @ 50 mls/hr IVPB Q8 [facility] PRN Reason: Protocol Last Admin: 04/02/17 00:17 Dose: 50 mls/hr Meropenem 1 gm/ Sodium (Chloride) 100 mls @ 100 mls/hr IVPB Q12H [facility] PRN Reason: Protocol Last Admin: 04/02/17 04:58 Dose: 100 mls/hr Lactobacillus Acidophilus (Bacid Acidophilus) 1 cap PO BID [facility] Last Admin: 04/02/17 08:42 Dose: 1 cap Oxycodone/Acetaminophen (Percocet 5/325 Mg Tab) 1 tab PO Q6 PRN PRN Reason: Pain, severe (8-10) Stop: 04/02/17 20:45 Last Admin: 04/02/17 05:03 Dose: 1 tab Oxycodone/Acetaminophen (Percocet 5/325 Mg Tab) 1 tab PO Q6 PRN PRN Reason: Pain, severe (8-10) Stop: 04/02/17 20:59 Thiamine HCl (Vitamin B1 Tab) 100 mg PO DAILY [facility] Last Admin: 04/02/17 08:43 Dose: 100 mg - Labs Labs: 04/01/17 05:25 04/01/17 05:25 - Constitutional Appears: No Acute Distress - Head Exam Head Exam: ATRAUMATIC, NORMAL INSPECTION, NORMOCEPHALIC - ENT Exam ENT Exam: Mucous Membranes Moist - Neck Exam Neck Exam: Full ROM - Respiratory Exam Respiratory Exam: Clear to Ausculation Bilateral - Cardiovascular Exam Cardiovascular Exam: REGULAR RHYTHM, +S1, +S2 - GI/Abdominal Exam GI & Abdominal Exam: Soft, Normal Bowel Sounds - Extremities Exam Additional comments: surgical wound improving erythema and edema. - Neurological Exam Neurological Exam: Alert, Awake, CN II-XII Intact, Oriented x3 - Psychiatric Exam Psychiatric exam: Normal Affect - Skin Skin Exam: Normal Color Assessment and Plan (1) Hip fracture Status: Acute (2) Left displaced femoral neck fracture Status: Acute (3) Hyperlipemia Status: Chronic (4) Hypertensive cardiovascular disease Status: Chronic (5) Polio Status: Chronic (6) Osteoporosis Status: Chronic - Assessment and Plan (Free Text) Plan: Continue present rx.
--- NOTE | 2017-04-02 17:34 | CP.PCM.PN ---
Subjective - Date & Time of Evaluation Date of Evaluation: 04/02/17 Time of Evaluation: 17:33 - Subjective Subjective: I D NOTE CT SCAN NOT DONE MINIMAL IMPROVEMENT Objective - Vital Signs/Intake and Output Vital Signs (last 24 hours): Temp Pulse Resp BP Pulse Ox 98.1 F 90 20 136/87 94 L 04/02/17 15:38 04/02/17 15:38 04/02/17 15:38 04/02/17 15:38 04/02/17 15:38 Intake and Output: 04/02/17 04/02/17 06:59 18:59 Intake Total 150 Balance 150 - Medications Medications: Current Medications Alendronate Sodium (Fosamax) 70 mg PO QWK [facility] Last Admin: 03/29/17 17:20 Dose: 70 mg Aspirin (Aspirin Chewable) 81 mg PO DAILY [facility] Last Admin: 04/02/17 08:43 Dose: 81 mg Calcium/Vitamin D (Citracal+D 315mg/250iu) 2 tab PO DAILY [facility] Last Admin: 04/02/17 08:43 Dose: 2 tab Docusate Sodium (Colace) 100 mg PO BID [facility] Last Admin: 04/02/17 16:20 Dose: 100 mg Enoxaparin Sodium (Lovenox) 40 mg SC DAILY [facility] PRN Reason: Protocol Last Admin: 03/31/17 08:42 Dose: 40 mg Famotidine (Pepcid) 20 mg PO BID [facility] Last Admin: 04/02/17 16:21 Dose: 20 mg Ferrous Sulfate (Feosol) 325 mg PO BID [facility] Last Admin: 04/02/17 16:21 Dose: 325 mg Folic Acid (Folic Acid) 1 mg PO DAILY [facility] Last Admin: 04/02/17 08:43 Dose: 1 mg Clindamycin Phosphate (Cleocin In Normal Saline) 600 mg in 50 mls @ 50 mls/hr IVPB Q8 [facility] PRN Reason: Protocol Last Admin: 04/02/17 16:20 Dose: 50 mls/hr Meropenem 1 gm/ Sodium (Chloride) 100 mls @ 100 mls/hr IVPB Q12H [facility] PRN Reason: Protocol Last Admin: 04/02/17 16:20 Dose: 100 mls/hr Lactobacillus Acidophilus (Bacid Acidophilus) 1 cap PO BID [facility] Last Admin: 04/02/17 16:21 Dose: 1 cap Oxycodone/Acetaminophen (Percocet 5/325 Mg Tab) 1 tab PO Q6 PRN PRN Reason: Pain, severe (8-10) Stop: 04/02/17 20:45 Last Admin: 04/02/17 12:35 Dose: 1 tab Oxycodone/Acetaminophen (Percocet 5/325 Mg Tab) 1 tab PO Q6 PRN PRN Reason: Pain, severe (8-10) Stop: 04/02/17 20:59 Thiamine HCl (Vitamin B1 Tab) 100 mg PO DAILY [facility] Last Admin: 04/02/17 08:43 Dose: 100 mg - Labs Labs: 04/01/17 05:25 04/01/17 05:25
[2017-04-03] MEDS: Clindamycin 600mg/50ml NS 600 MG/50 ML BAG IVPB SCH ×3 (00:11→17:30)
[2017-04-03] MEDS: Meropenem 1 GM in Sodium Chloride 0.9% 100 ML IVPB SCH (05:01)
[2017-04-03] MEDS: Citracal+D 315mg/250IU PO SCH (08:27)
[2017-04-03] MEDS: Lactobacillus Acidophilus 500 MU Cap PO SCH ×2 (08:52→17:29)
[2017-04-03] MEDS: Oxycodone/Acetaminophen 5/325 mg Tab PO PRN (13:44)
--- NOTE | 2017-04-03 18:13 | CP.PCM.PN ---
Subjective - Date & Time of Evaluation Date of Evaluation: 04/03/17 Time of Evaluation: 18:13 - Subjective Subjective: No new c/o Objective - Vital Signs/Intake and Output Vital Signs (last 24 hours): Temp Pulse Resp BP Pulse Ox 98.1 F 90 20 125/87 95 04/03/17 16:11 04/03/17 16:11 04/03/17 16:11 04/03/17 16:11 04/03/17 16:11 Intake and Output: 04/03/17 04/03/17 11:59 23:59 Intake Total 350 Balance 350 - Medications Medications: Current Medications Alendronate Sodium (Fosamax) 70 mg PO QWK [facility] Last Admin: 03/29/17 17:20 Dose: 70 mg Aspirin (Aspirin Chewable) 81 mg PO DAILY [facility] Last Admin: 04/03/17 08:27 Dose: 81 mg Calcium/Vitamin D (Citracal+D 315mg/250iu) 2 tab PO DAILY [facility] Last Admin: 04/03/17 08:27 Dose: 2 tab Docusate Sodium (Colace) 100 mg PO BID [facility] Last Admin: 04/03/17 17:30 Dose: 100 mg Enoxaparin Sodium (Lovenox) 40 mg SC DAILY [facility] PRN Reason: Protocol Last Admin: 03/31/17 08:42 Dose: 40 mg Famotidine (Pepcid) 20 mg PO BID [facility] Last Admin: 04/03/17 17:29 Dose: 20 mg Ferrous Sulfate (Feosol) 325 mg PO BID [facility] Last Admin: 04/03/17 17:30 Dose: 325 mg Folic Acid (Folic Acid) 1 mg PO DAILY [facility] Last Admin: 04/03/17 08:27 Dose: 1 mg Clindamycin Phosphate (Cleocin In Normal Saline) 600 mg in 50 mls @ 50 mls/hr IVPB Q8 [facility] PRN Reason: Protocol Last Admin: 04/03/17 17:30 Dose: 50 mls/hr Meropenem 1 gm/ Sodium (Chloride) 50 mls @ 50 mls/hr IVPB Q12@0500,1700 [facility] PRN Reason: Protocol Last Admin: 04/03/17 17:30 Dose: 50 mls/hr Lactobacillus Acidophilus (Bacid Acidophilus) 1 cap PO BID [facility] Last Admin: 04/03/17 17:29 Dose: 1 cap Oxycodone/Acetaminophen (Percocet 5/325 Mg Tab) 1 tab PO Q4 PRN PRN Reason: Pain, severe (8-10) Stop: 04/05/17 21:50 Last Admin: 04/03/17 13:44 Dose: 1 tab Thiamine HCl (Vitamin B1 Tab) 100 mg PO DAILY [facility] Last Admin: 04/03/17 08:27 Dose: 100 mg - Labs Labs: 04/01/17 05:25 04/01/17 05:25 - Constitutional Appears: No Acute Distress - Head Exam Head Exam: ATRAUMATIC, NORMAL INSPECTION, NORMOCEPHALIC - Eye Exam Eye Exam: Normal appearance - ENT Exam ENT Exam: Mucous Membranes Moist - Respiratory Exam Respiratory Exam: Clear to Ausculation Bilateral - Cardiovascular Exam Cardiovascular Exam: REGULAR RHYTHM, +S1, +S2 - GI/Abdominal Exam GI & Abdominal Exam: Soft, Normal Bowel Sounds - Extremities Exam Additional comments: Surgical site improving - Neurological Exam Neurological Exam: Alert, Awake, Oriented x3 - Psychiatric Exam Psychiatric exam: Normal Affect - Skin Skin Exam: Normal Color Assessment and Plan (1) Hip fracture Status: Acute (2) Left displaced femoral neck fracture Status: Acute (3) Hyperlipemia Status: Chronic (4) Hypertensive cardiovascular disease Status: Chronic (5) Polio Status: Chronic (6) Osteoporosis Status: Chronic
--- NOTE | 2017-04-03 19:49 | CT ---
EXAM: CT Left Lower Extremity Without Intravenous Contrast, Hip EXAM DATE/TIME: 04/03/2017 10:35 AM CLINICAL HISTORY: 71 years old, female; Signs and symptoms; Other: Redness and swelling; Prior surgery; Surgery date: 3-7 days post-operative; Additional info: Infction left hip TECHNIQUE: Axial computed tomography images of the left hip without intravenous contrast. All CT scans at this facility use one or more dose reduction techniques, viz.: automated exposure control; ma/kV adjustment per patient size (including targeted exams where dose is matched to indication; i.e. head); or iterative reconstruction technique. Coronal and sagittal reformatted images were created and reviewed. COMPARISON: Recent left hip radiographs 2017-03-27 16:47 FINDINGS: LIMITATIONS: Streak artifact from an arthroplasty device. BONES/JOINTS: Arthroplasty device in the left hip. Best seen on images [id number] of series 604, there is subtle cortical discontinuity of the left acetabulum superiorly, abutting the acetabular component of the arthroplasty device, and cannot rule out a subtle acute periprosthetic fracture. Facet joint degenerative changes of the lower lumbar spine incidentally noted. Degenerative changes of the sacroiliac joints bilaterally incidentally noted. No additional acute fractures seen. No evidence of acute dislocation. SOFT TISSUES: Recent postoperative changes. Multiple skin ludy in the left hip anteriorly. Single small focus of soft tissue air, most likely residual postoperative air. Masslike area of hyperdensity with an irregular shape in the deep soft tissues of the left hip anteriorly, which is most likely located in a fascial plane between the hip musculature. This is highly suspicious for a deep soft tissue hematoma. It measures 9 x 6 x 5 cm, and has a CT attenuation of 60 Hounsfield units. It directly abuts the left proximal femur and left femoral component of the arthroplasty device. It does not contain gas. Mild, diffuse subcutaneous edema in the left hip soft tissues. Diffuse atrophy of the left hip and gluteal musculature. No evidence of soft tissue gas. No definite gas-containing, walled off fluid collection is seen to suggest a drainable soft tissue abscess. IMPRESSION: - Findings compatible with a large 9 x 6 x 5 cm hematoma in the left hip deep soft tissues anteriorly. Please see above for a full description. - Subtle findings which could represent a periprosthetic fracture, abutting the acetabular component of the left hip arthroplasty device. Please see above for a full description. - See above for remaining findings.
--- NOTE | 2017-04-03 23:47 | CP.PCM.PN ---
Subjective - Date & Time of Evaluation Date of Evaluation: 04/03/17 Time of Evaluation: 23:37 - Subjective Subjective: I D Note ct scan reviewed : large hematoma described discussed c ,will continue iv antibiotics to evaluate o Objective - Vital Signs/Intake and Output Vital Signs (last 24 hours): Temp Pulse Resp BP Pulse Ox 99.0 F 75 20 120/71 99 04/03/17 21:16 04/03/17 21:16 04/03/17 21:16 04/03/17 21:16 04/03/17 21:16 Intake and Output: 04/03/17 04/04/17 18:59 06:59 Intake Total 350 Balance 350 - Medications Medications: Current Medications Alendronate Sodium (Fosamax) 70 mg PO QWK REPLACED BY [facility] Last Admin: 03/29/17 17:20 Dose: 70 mg Aspirin (Aspirin Chewable) 81 mg PO DAILY REPLACED BY [facility] Last Admin: 04/03/17 08:27 Dose: 81 mg Calcium/Vitamin D (Citracal+D 315mg/250iu) 2 tab PO DAILY REPLACED BY [facility] Last Admin: 04/03/17 08:27 Dose: 2 tab Docusate Sodium (Colace) 100 mg PO BID REPLACED BY [facility] Last Admin: 04/03/17 17:30 Dose: 100 mg Enoxaparin Sodium (Lovenox) 40 mg SC DAILY REPLACED BY [facility] PRN Reason: Protocol Last Admin: 03/31/17 08:42 Dose: 40 mg Famotidine (Pepcid) 20 mg PO BID REPLACED BY [facility] Last Admin: 04/03/17 17:29 Dose: 20 mg Ferrous Sulfate (Feosol) 325 mg PO BID REPLACED BY [facility] Last Admin: 04/03/17 17:30 Dose: 325 mg Folic Acid (Folic Acid) 1 mg PO DAILY [facility]PL[facility]ED BY [facility] Last Admin: 04/03/17 08:27 Dose: 1 mg Clindamycin Phosphate (Cleocin In Normal Saline) 600 mg in 50 mls @ 50 mls/hr IVPB Q8 REPLACED BY [facility] PRN Reason: Protocol Last Admin: 04/03/17 17:30 Dose: 50 mls/hr Meropenem 1 gm/ Sodium (Chloride) 50 mls @ 50 mls/hr IVPB Q12@0500,1700 REPLACED BY [facility] PRN Reason: Protocol Last Admin: 04/03/17 17:30 Dose: 50 mls/hr Lactobacillus Acidophilus (Bacid Acidophilus) 1 cap PO BID REPLACED BY [facility] Last Admin: 04/03/17 17:29 Dose: 1 cap Oxycodone/Acetaminophen (Percocet 5/325 Mg Tab) 1 tab PO Q4 PRN PRN Reason: Pain, severe (8-10) Stop: 04/05/17 21:50 Last Admin: 04/03/17 13:44 Dose: 1 tab Thiamine HCl (Vitamin B1 Tab) 100 mg PO DAILY REPLACED BY [facility] Last Admin: 04/03/17 08:27 Dose: 100 mg - Labs Labs: 04/01/17 05:25 04/01/17 05:25
[2017-04-04] MEDS: Oxycodone/Acetaminophen 5/325 mg Tab PO PRN ×3 (00:10→23:03)
[2017-04-04] MEDS: Clindamycin 600mg/50ml NS 600 MG/50 ML BAG IVPB SCH ×3 (00:11→16:17)
--- NOTE | 2017-04-04 07:46 | CP.PCM.PN ---
Subjective - Date & Time of Evaluation Date of Evaluation: 04/04/17 Time of Evaluation: 07:44 - Subjective Subjective: Patient still complaining of left hip pain, but says it is better. Asks when she can get out of bed. Objective - Vital Signs/Intake and Output Vital Signs (last 24 hours): Temp Pulse Resp BP Pulse Ox 99.0 F 75 20 120/71 99 04/03/17 21:16 04/03/17 21:16 04/03/17 21:16 04/03/17 21:16 04/03/17 21:16 - Medications Medications: Current Medications Alendronate Sodium (Fosamax) 70 mg PO QWK [facility] Last Admin: 03/29/17 17:20 Dose: 70 mg Aspirin (Aspirin Chewable) 81 mg PO DAILY [facility] Last Admin: 04/03/17 08:27 Dose: 81 mg Calcium/Vitamin D (Citracal+D 315mg/250iu) 2 tab PO DAILY [facility] Last Admin: 04/03/17 08:27 Dose: 2 tab Docusate Sodium (Colace) 100 mg PO BID [facility] Last Admin: 04/03/17 17:30 Dose: 100 mg Enoxaparin Sodium (Lovenox) 40 mg SC DAILY [facility] PRN Reason: Protocol Last Admin: 03/31/17 08:42 Dose: 40 mg Famotidine (Pepcid) 20 mg PO BID [facility] Last Admin: 04/03/17 17:29 Dose: 20 mg Ferrous Sulfate (Feosol) 325 mg PO BID [facility] Last Admin: 04/03/17 17:30 Dose: 325 mg Folic Acid (Folic Acid) 1 mg PO DAILY [facility] Last Admin: 04/03/17 08:27 Dose: 1 mg Clindamycin Phosphate (Cleocin In Normal Saline) 600 mg in 50 mls @ 50 mls/hr IVPB Q8 [facility] PRN Reason: Protocol Last Admin: 04/04/17 00:11 Dose: 50 mls/hr Meropenem 1 gm/ Sodium (Chloride) 50 mls @ 50 mls/hr IVPB Q12@0500,1700 [facility] PRN Reason: Protocol Last Admin: 04/04/17 05:53 Dose: 50 mls/hr Lactobacillus Acidophilus (Bacid Acidophilus) 1 cap PO BID [facility] Last Admin: 04/03/17 17:29 Dose: 1 cap Oxycodone/Acetaminophen (Percocet 5/325 Mg Tab) 1 tab PO Q4 PRN PRN Reason: Pain, severe (8-10) Stop: 04/05/17 21:50 Last Admin: 04/04/17 00:10 Dose: 1 tab Thiamine HCl (Vitamin B1 Tab) 100 mg PO DAILY [facility] Last Admin: 04/03/17 08:27 Dose: 100 mg - Labs Labs: 04/01/17 05:25 04/01/17 05:25 - Extremities Exam Additional comments: left hip: incision dry, significantly improved swelling/ecchymosis and no drainage. Blister resorbing. Thigh swelling improving. +ROM ankle/toes, sensation intact, +DP pulse, calves soft NT neg homans Assessment and Plan (1) Left displaced femoral neck fracture Assessment & Plan: POD#8 s/p left THR -CT ordered by Dr. Johnson shows hematoma and ?fx, will review with Dr. Gonzalez and discuss resuming PT -VTE proph -per Dr. Gonzalez, imaging reviewed, patient with osteopenia due to polio and acetabulum was seeded deep intentionally, no fracture -will resume PT NWB Status: Acute Radiology Interpretation - Radiology Interpretation #2 Interpretation: Patient Name / ID : NANCY PATEL / [id number] Exam Date : 04/03/2017 10:49:51 ( Approved ) Study Comment : Sex / Age : F / 71Y Creator : Maria D Gonzalez MD Dictator : Cafeteria Or Lunchroom Checker : Raw Stock Dyeing Machine Tender : Maria D Gonzalez MD Approver2 : Report Date : 04/03/2017 19:49:00 My Comment : [facility] Division of Radiology [address] [place] [address] Tel. no. Patient Name: JORGE CRUZ Pt. Address: [address] [place] [address] Med. Rec #: [id number] [place] [address]: Alex LAGUERRE, Schuyler Pt CELL Order Location: [facility] : 1945 Female Age: 71 Order #: [id number] Reason for exam: INFCTION LEFT HIP CT Scan HIP WITHOUT CONTRAST LEFT Exam Date: 04/03/17 This imaging exam was performed at [facility] ADDENDUM Addendum created by Maria D Gonzalez MD on 04/03/2017 8:09:38 PM EST The patient's nurse Maria D Turner has received the report for this exam, and is aware of the findings. She will call the findings to the patient's physician. Initial report created on 04/03/2017 7:49:11 PM EST EXAM: CT Left Lower Extremity Without Intravenous Contrast, Hip EXAM DATE/TIME: 04/03/2017 10:35 AM CLINICAL HISTORY: 71 years old, female; Signs and symptoms; Other: Redness and swelling; Prior surgery; Surgery date: 3-7 days post-operative; Additional info: Infction left hip TECHNIQUE: Axial computed tomography images of the left hip without intravenous contrast. All CT scans at this facility use one or more dose reduction techniques, viz.: automated exposure control; ma/kV adjustment per patient size (including targeted exams where dose is matched to indication; i.e. head); or iterative reconstruction technique. Coronal and sagittal reformatted images were created and reviewed. COMPARISON: Recent left hip radiographs 2017-03-27 16:47 FINDINGS: LIMITATIONS: Streak artifact from an arthroplasty device. BONES/JOINTS: Arthroplasty device in the left hip. Best seen on images [id number] of series 604, there is subtle cortical discontinuity of the left acetabulum superiorly, abutting the acetabular component of the arthroplasty device, and cannot rule out a subtle acute periprosthetic fracture. Facet joint degenerative changes of the lower lumbar spine incidentally noted. Degenerative changes of the sacroiliac joints bilaterally incidentally noted. No additional acute fractures seen. No evidence of acute dislocation. SOFT TISSUES: Recent postoperative changes. Multiple skin ludy in the left hip anteriorly. Single small focus of soft tissue air, most likely residual postoperative air. Masslike area of hyperdensity with an irregular shape in the deep soft tissues of the left hip anteriorly, which is most likely located in a fascial plane between the hip musculature. This is highly suspicious for a deep soft tissue hematoma. It measures 9 x 6 x 5 cm, and has a CT attenuation of 60 Hounsfield units. It directly abuts the left proximal femur and left femoral component of the arthroplasty device. It does not contain gas. Mild, diffuse subcutaneous edema in the left hip soft tissues. Diffuse atrophy of the left hip and gluteal musculature. No evidence of soft tissue gas. No definite gas-containing, walled off fluid collection is seen to suggest a drainable soft tissue abscess. IMPRESSION: - Findings compatible with a large 9 x 6 x 5 cm hematoma in the left hip deep soft tissues anteriorly. Please see above for a full description. - Subtle findings which could represent a periprosthetic fracture, abutting the acetabular component of the left hip arthroplasty device. Please see above for a full description. - See above for remaining findings. Addendum Dictated By: Maria D Gonzalez MD Addendum Dictated Date Time:04/03/1708/15/2008 Addendum Signed by:Maria D Gonzalez MD Addendum signed Date Time: 04/03/172008 Addendum Transcribed By: DUKE Addendum Transcribed Date Time: 04/03/1708/15/2008 [facility] J EXAM: CT Left Lower Extremity Without Intravenous Contrast, Hip EXAM DATE/TIME: 04/03/2017 10:35 AM CLINICAL HISTORY: 71 years old, female; Signs and symptoms; Other: Redness and swelling; Prior surgery; Surgery date: 3-7 days post-operative; Additional info: Infction left hip TECHNIQUE: Axial computed tomography images of the left hip without intravenous contrast. All CT scans at this facility use one or more dose reduction techniques, viz.: automated exposure control; ma/kV adjustment per patient size (including targeted exams where dose is matched to indication; i.e. head); or iterative reconstruction technique. Coronal and sagittal reformatted images were created and reviewed. COMPARISON: Recent left hip radiographs 2017-03-27 16:47 FINDINGS: LIMITATIONS: Streak artifact from an arthroplasty device. BONES/JOINTS: Arthroplasty device in the left hip. Best seen on images [id number] of series 604, there is subtle cortical discontinuity of the left acetabulum superiorly, abutting the acetabular component of the arthroplasty device, and cannot rule out a subtle acute periprosthetic fracture. Facet joint degenerative changes of the lower lumbar spine incidentally noted. Degenerative changes of the sacroiliac joints bilaterally incidentally noted. No additional acute fractures seen. No evidence of acute dislocation. SOFT TISSUES: Recent postoperative changes. Multiple skin ludy in the left hip anteriorly. Single small focus of soft tissue air, most likely residual postoperative air. Masslike area of hyperdensity with an irregular shape in the deep soft tissues of the left hip anteriorly, which is most likely located in a fascial plane between the hip musculature. This is highly suspicious for a deep soft tissue hematoma. It measures 9 x 6 x 5 cm, and has a CT attenuation of 60 Hounsfield units. It directly abuts the left proximal femur and left femoral component of the arthroplasty device. It does not contain gas. Mild, diffuse subcutaneous edema in the left hip soft tissues. Diffuse atrophy of the left hip and gluteal musculature. No evidence of soft tissue gas. No definite gas-containing, walled off fluid collection is seen to suggest a drainable soft tissue abscess. IMPRESSION: - Findings compatible with a large 9 x 6 x 5 cm hematoma in the left hip deep soft tissues anteriorly. Please see above for a full description. - Subtle findings which could represent a periprosthetic fracture, abutting the acetabular component of the left hip arthroplasty device. Please see above for a full description. - See above for remaining findings. Dictated By: Maria D Gonzalez MD Dictated Date/Time: 04/03/171948 Signed By: Maria D Gonzalez MD Date Signed: 1946 Transcribed By: DUKE Transcribe Date/Time : 04/03/171948 [facility] J
--- NOTE | 2017-04-04 08:03 | CP.PCM.PN ---
Subjective - Date & Time of Evaluation Date of Evaluation: 04/04/17 Time of Evaluation: 07:45 - Subjective Subjective: S- pt COMFORTABLE and in pleasnat spirits at time of eval hip pain much better! Objective - Vital Signs/Intake and Output Vital Signs (last 24 hours): Temp Pulse Resp BP Pulse Ox 99.0 F 75 20 120/71 99 04/03/17 21:16 04/03/17 21:16 04/03/17 21:16 04/03/17 21:16 04/03/17 21:16 - Medications Medications: Current Medications Alendronate Sodium (Fosamax) 70 mg PO QWK [facility] Last Admin: 03/29/17 17:20 Dose: 70 mg Aspirin (Aspirin Chewable) 81 mg PO DAILY [facility] Last Admin: 04/03/17 08:27 Dose: 81 mg Calcium/Vitamin D (Citracal+D 315mg/250iu) 2 tab PO DAILY [facility] Last Admin: 04/03/17 08:27 Dose: 2 tab Docusate Sodium (Colace) 100 mg PO BID [facility] Last Admin: 04/03/17 17:30 Dose: 100 mg Enoxaparin Sodium (Lovenox) 40 mg SC DAILY [facility] PRN Reason: Protocol Last Admin: 03/31/17 08:42 Dose: 40 mg Famotidine (Pepcid) 20 mg PO BID [facility] Last Admin: 04/03/17 17:29 Dose: 20 mg Ferrous Sulfate (Feosol) 325 mg PO BID [facility] Last Admin: 04/03/17 17:30 Dose: 325 mg Folic Acid (Folic Acid) 1 mg PO DAILY [facility] Last Admin: 04/03/17 08:27 Dose: 1 mg Clindamycin Phosphate (Cleocin In Normal Saline) 600 mg in 50 mls @ 50 mls/hr IVPB Q8 [facility] PRN Reason: Protocol Last Admin: 04/04/17 00:11 Dose: 50 mls/hr Meropenem 1 gm/ Sodium (Chloride) 50 mls @ 50 mls/hr IVPB Q12@0500,1700 [facility] PRN Reason: Protocol Last Admin: 04/04/17 05:53 Dose: 50 mls/hr Lactobacillus Acidophilus (Bacid Acidophilus) 1 cap PO BID [facility] Last Admin: 04/03/17 17:29 Dose: 1 cap Oxycodone/Acetaminophen (Percocet 5/325 Mg Tab) 1 tab PO Q4 PRN PRN Reason: Pain, severe (8-10) Stop: 04/05/17 21:50 Last Admin: 04/04/17 00:10 Dose: 1 tab Thiamine HCl (Vitamin B1 Tab) 100 mg PO DAILY [facility] Last Admin: 04/03/17 08:27 Dose: 100 mg - Labs Labs: 04/01/17 05:25 04/01/17 05:25 - Skin Additional comments: Musculoskekltal stance/gait- defrred L thigh girth stable minimal erythema- not siginificant- nop draingae decreasing pain on ROM Imaging disagree with DR Gonzalez's CT scan reading THere is evidenceof greater troch fx , treated with stabiliztaion of the abductor muscle mechanism. Because of the pts POOR quality polio bone, the acetabulum was placed deep in the pelvis mariusz controlled protrusio attitude The acetabulumwas bone grafted. Cup was stable at time of closuyre. The reading of periprosthetic acetabular fx is incorrect This represents the technique of cup positioning in poor polio bone. The hematoma is noted, is non expansile and will resorb in my opinion ice applx to continue Assessment and Plan - Assessment and Plan (Free Text) Assessment: A- s/p THR with non expansile hematoma, and acceptable psition of construct on CT P_ continue STRICT NON WEIGHT BEARING NO TREATMENT WHATSOEVER FOR THE relatively asymptomatic non expanisle routine post op hematoma. Will discuss porr CT reading with DR Hoffman
[2017-04-04] MEDS: Citracal+D 315mg/250IU PO SCH (08:18)
[2017-04-04] MEDS: Lactobacillus Acidophilus 500 MU Cap PO SCH ×2 (08:19→16:17)
--- NOTE | 2017-04-04 15:09 | CP.PCM.PN ---
Subjective - Date & Time of Evaluation Date of Evaluation: 04/04/17 Time of Evaluation: 15:09 - Subjective Subjective: Patient better no new c/o Objective - Vital Signs/Intake and Output Vital Signs (last 24 hours): Temp Pulse Resp BP Pulse Ox 98.1 F 78 20 117/69 99 04/04/17 08:10 04/04/17 08:10 04/04/17 08:10 04/04/17 08:10 04/04/17 08:10 - Medications Medications: Current Medications Alendronate Sodium (Fosamax) 70 mg PO QWK [facility] Last Admin: 03/29/17 17:20 Dose: 70 mg Aspirin (Aspirin Chewable) 81 mg PO DAILY [facility] Last Admin: 04/04/17 08:18 Dose: 81 mg Calcium/Vitamin D (Citracal+D 315mg/250iu) 2 tab PO DAILY [facility] Last Admin: 04/04/17 08:18 Dose: 2 tab Docusate Sodium (Colace) 100 mg PO BID [facility] Last Admin: 04/04/17 08:18 Dose: 100 mg Enoxaparin Sodium (Lovenox) 40 mg SC DAILY [facility] PRN Reason: Protocol Last Admin: 03/31/17 08:42 Dose: 40 mg Famotidine (Pepcid) 20 mg PO BID [facility] Last Admin: 04/04/17 08:18 Dose: 20 mg Ferrous Sulfate (Feosol) 325 mg PO BID [facility] Last Admin: 04/04/17 08:18 Dose: 325 mg Folic Acid (Folic Acid) 1 mg PO DAILY [facility] Last Admin: 04/04/17 08:18 Dose: 1 mg Clindamycin Phosphate (Cleocin In Normal Saline) 600 mg in 50 mls @ 50 mls/hr IVPB Q8 [facility] PRN Reason: Protocol Last Admin: 04/04/17 08:20 Dose: 50 mls/hr Meropenem 1 gm/ Sodium (Chloride) 50 mls @ 50 mls/hr IVPB Q12@0500,1700 [facility] PRN Reason: Protocol Last Admin: 04/04/17 05:53 Dose: 50 mls/hr Lactobacillus Acidophilus (Bacid Acidophilus) 1 cap PO BID [facility] Last Admin: 04/04/17 08:19 Dose: 1 cap Oxycodone/Acetaminophen (Percocet 5/325 Mg Tab) 1 tab PO Q4 PRN PRN Reason: Pain, severe (8-10) Stop: 04/05/17 21:50 Last Admin: 04/04/17 08:19 Dose: 1 tab Thiamine HCl (Vitamin B1 Tab) 100 mg PO DAILY [facility] Last Admin: 04/04/17 08:18 Dose: 100 mg - Labs Labs: 04/01/17 05:25 04/01/17 05:25 - Constitutional Appears: Non-toxic - Head Exam Head Exam: ATRAUMATIC, NORMAL INSPECTION, NORMOCEPHALIC - Eye Exam Eye Exam: Normal appearance - ENT Exam ENT Exam: Mucous Membranes Moist - Neck Exam Neck Exam: Full ROM - Respiratory Exam Respiratory Exam: Clear to Ausculation Bilateral - Cardiovascular Exam Cardiovascular Exam: REGULAR RHYTHM, +S1, +S2 - GI/Abdominal Exam GI & Abdominal Exam: Soft, Normal Bowel Sounds - Extremities Exam Additional comments: Less erythema and less tenderness - Neurological Exam Neurological Exam: Alert, Awake, CN II-XII Intact, Oriented x3 - Psychiatric Exam Psychiatric exam: Normal Affect - Skin Skin Exam: Normal Color Assessment and Plan (1) Hip fracture Status: Acute (2) Left displaced femoral neck fracture Status: Acute (3) Hyperlipemia Status: Chronic (4) Hypertensive cardiovascular disease Status: Chronic (5) Polio Status: Chronic (6) Osteoporosis Status: Chronic - Assessment and Plan (Free Text) Plan: Continue present rx
[2017-04-05] MEDS: Clindamycin 600mg/50ml NS 600 MG/50 ML BAG IVPB SCH ×3 (00:06→17:17)
[2017-04-05] MEDS: Citracal+D 315mg/250IU PO SCH (08:16)
[2017-04-05] MEDS: Lactobacillus Acidophilus 500 MU Cap PO SCH ×2 (08:16→17:18)
[2017-04-05] MEDS: Oxycodone/Acetaminophen 5/325 mg Tab PO PRN ×2 (09:51→21:10)
[2017-04-05 10:23] LABS: BASO % 0.4 % (0.0-2.0); EOS # 0.4 K/uL (0.0-0.7); EOS % 4.5 % (0.0-4.0); LYMPH # 1.4 K/uL (1.0-4.3); LYMPH % 17.1 % (20.0-40.0); MEAN CELL VOLUME 88.3 fl (81.0-99.0); MEAN CORPUSCULAR HEMOGLOBIN 29.6 pg (27.0-31.0); MEAN CORPUSCULAR HGB CONC 33.6 g/dL (33.0-37.0); MEAN PLATELET VOLUME 7.2 fl (7.2-11.7); MONO # 0.7 K/uL (0.0-0.8); MONO % 8.8 % (0.0-10.0); NEUT # 5.6 K/uL (1.8-7.0); NEUT % 69.2 % (50.0-75.0); NRBC % 0.1 % (0.0-0.0); RED CELL DISTRIBUTION WIDTH 16.1 % (11.5-14.5)
[2017-04-05 10:37] LABS: BLOOD UREA NITROGEN 19 mg/dl (7-17); CALCIUM 8.4 mg/dL (8.4-10.2); CARBON DIOXIDE 29 mmol/L (22-30); CHLORIDE 104 mmol/L (98-107); GFR AFRICAN-AMERICAN > 60; GLUCOSE,RANDOM 107 mg/dL (65-105); POTASSIUM 3.7 MMOL/L (3.6-5.0); SODIUM 140 mmol/l (132-148)
--- NOTE | 2017-04-05 11:45 | CP.PCM.PN ---
Subjective - Date & Time of Evaluation Date of Evaluation: 04/05/17 Time of Evaluation: 08:00 - Subjective Subjective: Patient still complaining of hip pain. Objective - Vital Signs/Intake and Output Vital Signs (last 24 hours): Temp Pulse Resp BP Pulse Ox 98.6 F 70 20 118/74 99 04/05/17 08:17 04/05/17 08:17 04/05/17 08:17 04/05/17 08:17 04/05/17 08:17 - Medications Medications: Current Medications Alendronate Sodium (Fosamax) 70 mg PO QWK [facility] Last Admin: 03/29/17 17:20 Dose: 70 mg Aspirin (Aspirin Chewable) 81 mg PO DAILY [facility] Last Admin: 04/05/17 08:16 Dose: 81 mg Calcium/Vitamin D (Citracal+D 315mg/250iu) 2 tab PO DAILY [facility] Last Admin: 04/05/17 08:16 Dose: 2 tab Docusate Sodium (Colace) 100 mg PO BID [facility] Last Admin: 04/05/17 08:17 Dose: 100 mg Enoxaparin Sodium (Lovenox) 40 mg SC DAILY [facility] PRN Reason: Protocol Last Admin: 03/31/17 08:42 Dose: 40 mg Famotidine (Pepcid) 20 mg PO BID [facility] Last Admin: 04/05/17 08:17 Dose: 20 mg Ferrous Sulfate (Feosol) 325 mg PO BID [facility] Last Admin: 04/05/17 08:17 Dose: 325 mg Folic Acid (Folic Acid) 1 mg PO DAILY [facility] Last Admin: 04/05/17 08:17 Dose: 1 mg Clindamycin Phosphate (Cleocin In Normal Saline) 600 mg in 50 mls @ 50 mls/hr IVPB Q8 [facility] PRN Reason: Protocol Last Admin: 04/05/17 08:17 Dose: 50 mls/hr Meropenem 1 gm/ Sodium (Chloride) 50 mls @ 50 mls/hr IVPB Q12@0500,1700 [facility] PRN Reason: Protocol Last Admin: 04/05/17 04:18 Dose: 50 mls/hr Lactobacillus Acidophilus (Bacid Acidophilus) 1 cap PO BID [facility] Last Admin: 04/05/17 08:16 Dose: 1 cap Oxycodone/Acetaminophen (Percocet 5/325 Mg Tab) 1 tab PO Q4 PRN PRN Reason: Pain, severe (8-10) Stop: 04/05/17 21:50 Last Admin: 04/05/17 09:51 Dose: 1 tab Thiamine HCl (Vitamin B1 Tab) 100 mg PO DAILY [facility] Last Admin: 04/05/17 08:18 Dose: 100 mg - Labs Labs: 04/05/17 10:05 04/05/17 10:05 - Extremities Exam Additional comments: Left hip: dressing dry. Swelling improving. +ROM ankle/toes,s ensationintact, + DP/PT pulse, calves soft Nt neg homans Assessment and Plan (1) Left displaced femoral neck fracture Assessment & Plan: s/p THR cont PT NWB monitor for swelling, now improving no clinical suspicion of infection d/w Dr. Gonzalez, agrees with above Status: Acute
--- NOTE | 2017-04-05 12:52 | CP.PCM.PN ---
Subjective - Date & Time of Evaluation Date of Evaluation: 04/05/17 Time of Evaluation: 12:51 - Subjective Subjective: Patient with no new c/o, improving well. Erythema and edema improving on present rx. Objective - Vital Signs/Intake and Output Vital Signs (last 24 hours): Temp Pulse Resp BP Pulse Ox 98.6 F 70 20 118/74 99 04/05/17 08:17 04/05/17 08:17 04/05/17 08:17 04/05/17 08:17 04/05/17 08:17 - Medications Medications: Current Medications Alendronate Sodium (Fosamax) 70 mg PO QWK [facility] Last Admin: 03/29/17 17:20 Dose: 70 mg Aspirin (Aspirin Chewable) 81 mg PO DAILY [facility] Last Admin: 04/05/17 08:16 Dose: 81 mg Calcium/Vitamin D (Citracal+D 315mg/250iu) 2 tab PO DAILY [facility] Last Admin: 04/05/17 08:16 Dose: 2 tab Docusate Sodium (Colace) 100 mg PO BID [facility] Last Admin: 04/05/17 08:17 Dose: 100 mg Enoxaparin Sodium (Lovenox) 40 mg SC DAILY [facility] PRN Reason: Protocol Last Admin: 03/31/17 08:42 Dose: 40 mg Famotidine (Pepcid) 20 mg PO BID [facility] Last Admin: 04/05/17 08:17 Dose: 20 mg Ferrous Sulfate (Feosol) 325 mg PO BID [facility] Last Admin: 04/05/17 08:17 Dose: 325 mg Folic Acid (Folic Acid) 1 mg PO DAILY [facility] Last Admin: 04/05/17 08:17 Dose: 1 mg Clindamycin Phosphate (Cleocin In Normal Saline) 600 mg in 50 mls @ 50 mls/hr IVPB Q8 [facility] PRN Reason: Protocol Last Admin: 04/05/17 08:17 Dose: 50 mls/hr Meropenem 1 gm/ Sodium (Chloride) 100 mls @ 100 mls/hr IVPB Q12@0500,1700 [facility] PRN Reason: Protocol Lactobacillus Acidophilus (Bacid Acidophilus) 1 cap PO BID [facility] Last Admin: 04/05/17 08:16 Dose: 1 cap Oxycodone/Acetaminophen (Percocet 5/325 Mg Tab) 1 tab PO Q4 PRN PRN Reason: Pain, severe (8-10) Stop: 04/05/17 21:50 Last Admin: 04/05/17 09:51 Dose: 1 tab Thiamine HCl (Vitamin B1 Tab) 100 mg PO DAILY [facility] Last Admin: 04/05/17 08:18 Dose: 100 mg - Labs Labs: 04/05/17 10:05 04/05/17 10:05 - Constitutional Appears: No Acute Distress - Head Exam Head Exam: ATRAUMATIC, NORMAL INSPECTION, NORMOCEPHALIC - Eye Exam Eye Exam: Normal appearance - ENT Exam ENT Exam: Mucous Membranes Moist - Neck Exam Neck Exam: Full ROM - Respiratory Exam Respiratory Exam: Clear to Ausculation Bilateral - Cardiovascular Exam Cardiovascular Exam: REGULAR RHYTHM, +S1, +S2 - GI/Abdominal Exam GI & Abdominal Exam: Soft, Normal Bowel Sounds - Neurological Exam Neurological Exam: Alert, Awake, CN II-XII Intact, Oriented x3 - Psychiatric Exam Psychiatric exam: Normal Affect - Skin Skin Exam: Normal Color Assessment and Plan (1) Hip fracture Status: Acute (2) Left displaced femoral neck fracture Status: Acute (3) Hyperlipemia Status: Chronic (4) Hypertensive cardiovascular disease Status: Chronic (5) Polio Status: Chronic (6) Osteoporosis Status: Chronic - Assessment and Plan (Free Text) Plan: Continue present rx.
[2017-04-05] MEDS: Meropenem 1 GM in Sodium Chloride 0.9% 100 ML IVPB SCH (17:17)
--- NOTE | 2017-04-05 18:48 | CP.PCM.PN ---
Subjective - Date & Time of Evaluation Date of Evaluation: 04/05/17 Time of Evaluation: 18:45 - Subjective Subjective: iI D NOTE IMPROVEMENT OF AREA BUT STILL HAS PAIN ON EXAM WOULD CONTINUE IV ANTIBIOTICS Objective - Vital Signs/Intake and Output Vital Signs (last 24 hours): Temp Pulse Resp BP Pulse Ox 97.9 F 90 20 116/75 96 04/05/17 15:38 04/05/17 15:38 04/05/17 15:38 04/05/17 15:38 04/05/17 15:38 - Medications Medications: Current Medications Alendronate Sodium (Fosamax) 70 mg PO QWK [facility] Last Admin: 03/29/17 17:20 Dose: 70 mg Aspirin (Aspirin Chewable) 81 mg PO DAILY [facility] Last Admin: 04/05/17 08:16 Dose: 81 mg Calcium/Vitamin D (Citracal+D 315mg/250iu) 2 tab PO DAILY [facility] Last Admin: 04/05/17 08:16 Dose: 2 tab Docusate Sodium (Colace) 100 mg PO BID [facility] Last Admin: 04/05/17 17:18 Dose: 100 mg Enoxaparin Sodium (Lovenox) 40 mg SC DAILY [facility] PRN Reason: Protocol Last Admin: 03/31/17 08:42 Dose: 40 mg Famotidine (Pepcid) 20 mg PO BID [facility] Last Admin: 04/05/17 17:18 Dose: 20 mg Ferrous Sulfate (Feosol) 325 mg PO BID [facility] Last Admin: 04/05/17 17:18 Dose: 325 mg Folic Acid (Folic Acid) 1 mg PO DAILY [facility] Last Admin: 04/05/17 08:17 Dose: 1 mg Clindamycin Phosphate (Cleocin In Normal Saline) 600 mg in 50 mls @ 50 mls/hr IVPB Q8 [facility] PRN Reason: Protocol Last Admin: 04/05/17 17:17 Dose: 50 mls/hr Meropenem 1 gm/ Sodium (Chloride) 100 mls @ 100 mls/hr IVPB Q12@0500,1700 [facility] PRN Reason: Protocol Last Admin: 04/05/17 17:17 Dose: 100 mls/hr Lactobacillus Acidophilus (Bacid Acidophilus) 1 cap PO BID [facility] Last Admin: 04/05/17 17:18 Dose: 1 cap Oxycodone/Acetaminophen (Percocet 5/325 Mg Tab) 1 tab PO Q4 PRN PRN Reason: Pain, severe (8-10) Stop: 04/05/17 21:50 Last Admin: 04/05/17 09:51 Dose: 1 tab Thiamine HCl (Vitamin B1 Tab) 100 mg PO DAILY [facility] Last Admin: 04/05/17 08:18 Dose: 100 mg - Labs Labs: 04/05/17 10:05 04/05/17 10:05
--- NOTE | 2017-04-05 21:47 | CP.PCM.PN ---
Subjective - Date & Time of Evaluation Date of Evaluation: 04/03/17 Time of Evaluation: 17:00 - Subjective Subjective: mild left leg discomfort Objective - Vital Signs/Intake and Output Vital Signs (last 24 hours): Temp Pulse Resp BP Pulse Ox 98.1 F 94 H 20 118/81 97 04/05/17 19:41 04/05/17 19:41 04/05/17 19:41 04/05/17 19:41 04/05/17 19:41 - Medications Medications: Current Medications Alendronate Sodium (Fosamax) 70 mg PO QWK [facility] Last Admin: 03/29/17 17:20 Dose: 70 mg Aspirin (Aspirin Chewable) 81 mg PO DAILY [facility] Last Admin: 04/05/17 08:16 Dose: 81 mg Calcium/Vitamin D (Citracal+D 315mg/250iu) 2 tab PO DAILY [facility] Last Admin: 04/05/17 08:16 Dose: 2 tab Docusate Sodium (Colace) 100 mg PO BID [facility] Last Admin: 04/05/17 17:18 Dose: 100 mg Enoxaparin Sodium (Lovenox) 40 mg SC DAILY [facility] PRN Reason: Protocol Last Admin: 03/31/17 08:42 Dose: 40 mg Famotidine (Pepcid) 20 mg PO BID [facility] Last Admin: 04/05/17 17:18 Dose: 20 mg Ferrous Sulfate (Feosol) 325 mg PO BID [facility] Last Admin: 04/05/17 17:18 Dose: 325 mg Folic Acid (Folic Acid) 1 mg PO DAILY [facility] Last Admin: 04/05/17 08:17 Dose: 1 mg Clindamycin Phosphate (Cleocin In Normal Saline) 600 mg in 50 mls @ 50 mls/hr IVPB Q8 [facility] PRN Reason: Protocol Last Admin: 04/05/17 17:17 Dose: 50 mls/hr Meropenem 1 gm/ Sodium (Chloride) 100 mls @ 100 mls/hr IVPB Q12@0500,1700 [facility] PRN Reason: Protocol Last Admin: 04/05/17 17:17 Dose: 100 mls/hr Lactobacillus Acidophilus (Bacid Acidophilus) 1 cap PO BID [facility] Last Admin: 04/05/17 17:18 Dose: 1 cap Oxycodone/Acetaminophen (Percocet 5/325 Mg Tab) 1 tab PO Q4 PRN PRN Reason: Pain, severe (8-10) Stop: 04/05/17 21:50 Last Admin: 04/05/17 21:10 Dose: 1 tab Thiamine HCl (Vitamin B1 Tab) 100 mg PO DAILY [facility] Last Admin: 04/05/17 08:18 Dose: 100 mg - Labs Labs: 04/05/17 10:05 04/05/17 10:05 - Head Exam Head Exam: ATRAUMATIC, NORMAL INSPECTION, NORMOCEPHALIC - Eye Exam Eye Exam: EOMI, Normal appearance Pupil Exam: NORMAL ACCOMODATION, PERRL - ENT Exam ENT Exam: Mucous Membranes Moist, Normal Exam - Respiratory Exam Respiratory Exam: Clear to Ausculation Bilateral, NORMAL BREATHING PATTERN - Cardiovascular Exam Cardiovascular Exam: REGULAR RHYTHM - GI/Abdominal Exam GI & Abdominal Exam: Soft, Normal Bowel Sounds - Rectal Exam Rectal Exam: NORMAL INSPECTION - Exam External exam: NORMAL EXTERNAL EXAM - Extremities Exam Extremities Exam: Normal Capillary Refill, Normal Inspection - Back Exam Back Exam: NORMAL INSPECTION - Neurological Exam Neurological Exam: CN II-XII Intact, Normal Gait Neuro motor strength exam: Left Upper Extremity: 4, Right Upper Extremity: 4, Left Lower Extremity: 2/1, Right Lower Extremity: 3 - Psychiatric Exam Psychiatric exam: Normal Affect, Normal Mood - Skin Skin Exam: Dry, Normal Color, Warm Assessment and Plan (1) Osteoporosis Status: Chronic (2) Hip fracture Status: Acute (3) Left displaced femoral neck fracture Assessment & Plan: plan for Pt, ot therapy monitor skin left hip Status: Acute (4) Hyperlipemia Status: Chronic (5) Hypertensive cardiovascular disease Status: Chronic (6) Polio Status: Chronic
--- NOTE | 2017-04-05 21:50 | CP.PCM.PN ---
Subjective - Date & Time of Evaluation Date of Evaluation: 04/05/17 Time of Evaluation: 18:40 - Subjective Subjective: patinet with less discomfort at the left hip Objective - Vital Signs/Intake and Output Vital Signs (last 24 hours): Temp Pulse Resp BP Pulse Ox 98.1 F 94 H 20 118/81 97 04/05/17 19:41 04/05/17 19:41 04/05/17 19:41 04/05/17 19:41 04/05/17 19:41 - Medications Medications: Current Medications Alendronate Sodium (Fosamax) 70 mg PO QWK [facility] Last Admin: 03/29/17 17:20 Dose: 70 mg Aspirin (Aspirin Chewable) 81 mg PO DAILY [facility] Last Admin: 04/05/17 08:16 Dose: 81 mg Calcium/Vitamin D (Citracal+D 315mg/250iu) 2 tab PO DAILY [facility] Last Admin: 04/05/17 08:16 Dose: 2 tab Docusate Sodium (Colace) 100 mg PO BID [facility] Last Admin: 04/05/17 17:18 Dose: 100 mg Enoxaparin Sodium (Lovenox) 40 mg SC DAILY [facility] PRN Reason: Protocol Last Admin: 03/31/17 08:42 Dose: 40 mg Famotidine (Pepcid) 20 mg PO BID [facility] Last Admin: 04/05/17 17:18 Dose: 20 mg Ferrous Sulfate (Feosol) 325 mg PO BID [facility] Last Admin: 04/05/17 17:18 Dose: 325 mg Folic Acid (Folic Acid) 1 mg PO DAILY [facility] Last Admin: 04/05/17 08:17 Dose: 1 mg Clindamycin Phosphate (Cleocin In Normal Saline) 600 mg in 50 mls @ 50 mls/hr IVPB Q8 [facility] PRN Reason: Protocol Last Admin: 04/05/17 17:17 Dose: 50 mls/hr Meropenem 1 gm/ Sodium (Chloride) 100 mls @ 100 mls/hr IVPB Q12@0500,1700 [facility] PRN Reason: Protocol Last Admin: 04/05/17 17:17 Dose: 100 mls/hr Lactobacillus Acidophilus (Bacid Acidophilus) 1 cap PO BID [facility] Last Admin: 04/05/17 17:18 Dose: 1 cap Oxycodone/Acetaminophen (Percocet 5/325 Mg Tab) 1 tab PO Q4 PRN PRN Reason: Pain, severe (8-10) Stop: 04/05/17 21:50 Last Admin: 04/05/17 21:10 Dose: 1 tab Thiamine HCl (Vitamin B1 Tab) 100 mg PO DAILY [facility] Last Admin: 04/05/17 08:18 Dose: 100 mg - Labs Labs: 04/05/17 10:05 04/05/17 10:05 - Head Exam Head Exam: ATRAUMATIC, NORMAL INSPECTION, NORMOCEPHALIC - Eye Exam Eye Exam: EOMI, Normal appearance Pupil Exam: NORMAL ACCOMODATION, PERRL - ENT Exam ENT Exam: Mucous Membranes Moist, Normal Exam - Neck Exam Neck Exam: Normal Inspection - Respiratory Exam Respiratory Exam: Clear to Ausculation Bilateral, NORMAL BREATHING PATTERN - Cardiovascular Exam Cardiovascular Exam: REGULAR RHYTHM - GI/Abdominal Exam GI & Abdominal Exam: Soft, Normal Bowel Sounds - Rectal Exam Rectal Exam: NORMAL INSPECTION - Exam External exam: NORMAL EXTERNAL EXAM Bimanual exam: NORMAL BIMANUAL EXAM - Extremities Exam Extremities Exam: Normal Capillary Refill, Normal Inspection - Back Exam Back Exam: NORMAL INSPECTION - Neurological Exam Neurological Exam: Alert, Awake, CN II-XII Intact Neuro motor strength exam: Left Upper Extremity: 4, Right Upper Extremity: 4, Left Lower Extremity: 2/1, Right Lower Extremity: 3 - Psychiatric Exam Psychiatric exam: Normal Affect, Normal Mood - Skin Skin Exam: Dry, Normal Color Assessment and Plan (1) Osteoporosis Status: Chronic (2) Hip fracture Status: Acute (3) Left displaced femoral neck fracture Assessment & Plan: plan for physical, and occupational therapy for range of motion, strengthening, transfers and gait. monitor left skin incisional area Status: Acute (4) Hyperlipemia Status: Chronic (5) Hypertensive cardiovascular disease Status: Chronic (6) Polio Status: Chronic
--- NOTE | 2017-04-05 22:17 | CP.PCM.PN ---
Subjective - Date & Time of Evaluation Date of Evaluation: 04/01/17 Time of Evaluation: 18:30 - Subjective Subjective: no acute complaints Objective - Vital Signs/Intake and Output Vital Signs (last 24 hours): Temp Pulse Resp BP Pulse Ox 98.1 F 94 H 20 118/81 97 04/05/17 19:41 04/05/17 19:41 04/05/17 19:41 04/05/17 19:41 04/05/17 19:41 - Medications Medications: Current Medications Alendronate Sodium (Fosamax) 70 mg PO QWK [facility] Last Admin: 03/29/17 17:20 Dose: 70 mg Aspirin (Aspirin Chewable) 81 mg PO DAILY [facility] Last Admin: 04/05/17 08:16 Dose: 81 mg Calcium/Vitamin D (Citracal+D 315mg/250iu) 2 tab PO DAILY [facility] Last Admin: 04/05/17 08:16 Dose: 2 tab Docusate Sodium (Colace) 100 mg PO BID [facility] Last Admin: 04/05/17 17:18 Dose: 100 mg Enoxaparin Sodium (Lovenox) 40 mg SC DAILY [facility] PRN Reason: Protocol Last Admin: 03/31/17 08:42 Dose: 40 mg Famotidine (Pepcid) 20 mg PO BID [facility] Last Admin: 04/05/17 17:18 Dose: 20 mg Ferrous Sulfate (Feosol) 325 mg PO BID [facility] Last Admin: 04/05/17 17:18 Dose: 325 mg Folic Acid (Folic Acid) 1 mg PO DAILY [facility] Last Admin: 04/05/17 08:17 Dose: 1 mg Clindamycin Phosphate (Cleocin In Normal Saline) 600 mg in 50 mls @ 50 mls/hr IVPB Q8 [facility] PRN Reason: Protocol Last Admin: 04/05/17 17:17 Dose: 50 mls/hr Meropenem 1 gm/ Sodium (Chloride) 100 mls @ 100 mls/hr IVPB Q12@0500,1700 [facility] PRN Reason: Protocol Last Admin: 04/05/17 17:17 Dose: 100 mls/hr Lactobacillus Acidophilus (Bacid Acidophilus) 1 cap PO BID [facility] Last Admin: 04/05/17 17:18 Dose: 1 cap Thiamine HCl (Vitamin B1 Tab) 100 mg PO DAILY [facility] Last Admin: 12/06/17 08:18 Dose: 100 mg - Labs Labs: 04/05/17 10:05 04/05/17 10:05 - Head Exam Head Exam: ATRAUMATIC, NORMAL INSPECTION, NORMOCEPHALIC - Eye Exam Eye Exam: EOMI, Normal appearance Pupil Exam: NORMAL ACCOMODATION, PERRL - ENT Exam ENT Exam: Mucous Membranes Moist, Normal Exam - Neck Exam Neck Exam: Normal Inspection - Respiratory Exam Respiratory Exam: Clear to Ausculation Bilateral, NORMAL BREATHING PATTERN - Cardiovascular Exam Cardiovascular Exam: REGULAR RHYTHM - GI/Abdominal Exam GI & Abdominal Exam: Normal Bowel Sounds - Rectal Exam Rectal Exam: NORMAL INSPECTION - Exam External exam: NORMAL EXTERNAL EXAM - Extremities Exam Extremities Exam: Normal Capillary Refill, Normal Inspection - Back Exam Back Exam: NORMAL INSPECTION - Neurological Exam Neurological Exam: Alert, Awake Neuro motor strength exam: Left Upper Extremity: 4, Right Upper Extremity: 4, Left Lower Extremity: 2/1, Right Lower Extremity: 3 - Psychiatric Exam Psychiatric exam: Normal Affect - Skin Skin Exam: Normal Color Assessment and Plan (1) Osteoporosis Status: Chronic (2) Hip fracture Status: Acute (3) Left displaced femoral neck fracture Assessment & Plan: plan for range of motion, strenghtening , transfers and gait training Status: Acute (4) Hyperlipemia Status: Chronic (5) Hypertensive cardiovascular disease Status: Chronic (6) Polio Status: Chronic
[2017-04-06] MEDS: Clindamycin 600mg/50ml NS 600 MG/50 ML BAG IVPB SCH ×3 (00:17→16:14)
[2017-04-06] MEDS: Meropenem 1 GM in Sodium Chloride 0.9% 100 ML IVPB SCH ×2 (04:41→17:11)
[2017-04-06] MEDS: Lactobacillus Acidophilus 500 MU Cap PO SCH ×2 (08:09→16:14)
[2017-04-06] MEDS: Citracal+D 315mg/250IU PO SCH (12:04)
[2017-04-06] MEDS: Oxycodone/Acetaminophen 5/325 mg Tab PO PRN ×2 (12:06→16:14)
--- NOTE | 2017-04-06 15:41 | CP.PCM.PN ---
Subjective - Date & Time of Evaluation Date of Evaluation: 04/06/17 Time of Evaluation: 15:43 - Subjective Subjective: No new changes. Objective - Vital Signs/Intake and Output Vital Signs (last 24 hours): Temp Pulse Resp BP Pulse Ox 98.2 F 85 20 120/79 100 04/06/17 07:41 04/06/17 07:41 04/06/17 07:41 04/06/17 07:41 04/06/17 07:41 - Medications Medications: Current Medications Alendronate Sodium (Fosamax) 70 mg PO QWK [facility] Last Admin: 03/29/17 17:20 Dose: 70 mg Aspirin (Aspirin Chewable) 81 mg PO DAILY [facility] Last Admin: 04/06/17 08:09 Dose: 81 mg Calcium/Vitamin D (Citracal+D 315mg/250iu) 2 tab PO DAILY [facility] Last Admin: 04/06/17 12:04 Dose: 2 tab Docusate Sodium (Colace) 100 mg PO BID [facility] Last Admin: 04/06/17 08:09 Dose: 100 mg Enoxaparin Sodium (Lovenox) 40 mg SC DAILY [facility] PRN Reason: Protocol Last Admin: 03/31/17 08:42 Dose: 40 mg Famotidine (Pepcid) 20 mg PO BID [facility] Last Admin: 04/06/17 08:10 Dose: 20 mg Ferrous Sulfate (Feosol) 325 mg PO BID [facility] Last Admin: 04/06/17 08:10 Dose: 325 mg Folic Acid (Folic Acid) 1 mg PO DAILY [facility] Last Admin: 04/06/17 08:10 Dose: 1 mg Clindamycin Phosphate (Cleocin In Normal Saline) 600 mg in 50 mls @ 50 mls/hr IVPB Q8 [facility] PRN Reason: Protocol Last Admin: 04/06/17 08:03 Dose: 50 mls/hr Meropenem 1 gm/ Sodium (Chloride) 100 mls @ 100 mls/hr IVPB Q12@0500,1700 [facility] PRN Reason: Protocol Last Admin: 04/06/17 04:41 Dose: 100 mls/hr Lactobacillus Acidophilus (Bacid Acidophilus) 1 cap PO BID [facility] Last Admin: 04/06/17 08:09 Dose: 1 cap Oxycodone/Acetaminophen (Percocet 5/325 Mg Tab) 1 tab PO Q4 PRN PRN Reason: Pain, moderate (4-7) Stop: 04/09/17 09:04 Last Admin: 04/06/17 12:06 Dose: 1 tab Thiamine HCl (Vitamin B1 Tab) 100 mg PO DAILY [facility] Last Admin: 04/06/17 08:10 Dose: 100 mg - Labs Labs: 04/05/17 10:05 04/05/17 10:05 - Constitutional Appears: No Acute Distress - Head Exam Head Exam: ATRAUMATIC, NORMAL INSPECTION, NORMOCEPHALIC - Eye Exam Eye Exam: Normal appearance - ENT Exam ENT Exam: Mucous Membranes Moist - Neck Exam Neck Exam: Full ROM - Respiratory Exam Respiratory Exam: Clear to Ausculation Bilateral - Cardiovascular Exam Cardiovascular Exam: REGULAR RHYTHM, +S1, +S2 - GI/Abdominal Exam GI & Abdominal Exam: Soft, Normal Bowel Sounds - Extremities Exam Additional comments: NO changes - Neurological Exam Neurological Exam: Alert, Awake, CN II-XII Intact, Oriented x3 - Psychiatric Exam Psychiatric exam: Normal Affect - Skin Skin Exam: Normal Color Assessment and Plan (1) Hip fracture Status: Acute (2) Left displaced femoral neck fracture Status: Acute (3) Hyperlipemia Status: Chronic (4) Hypertensive cardiovascular disease Status: Chronic (5) Polio Status: Chronic (6) Osteoporosis Status: Chronic - Assessment and Plan (Free Text) Plan: F/U US of the surgical wound.
[2017-04-07] MEDS: Clindamycin 600mg/50ml NS 600 MG/50 ML BAG IVPB SCH ×3 (00:06→17:32)
[2017-04-07] MEDS: Meropenem 1 GM in Sodium Chloride 0.9% 100 ML IVPB SCH ×2 (04:46→17:34)
[2017-04-07] MEDS: Citracal+D 315mg/250IU PO SCH (08:38)
[2017-04-07] MEDS: Lactobacillus Acidophilus 500 MU Cap PO SCH ×2 (09:11→17:32)
[2017-04-07] MEDS: Oxycodone/Acetaminophen 5/325 mg Tab PO PRN (10:22)
--- NOTE | 2017-04-07 10:39 | CP.PCM.PN ---
Subjective - Date & Time of Evaluation Date of Evaluation: 04/07/17 Time of Evaluation: 10:37 - Subjective Subjective: Patient still complaining of hip pain. Advised atient stll NWB Objective - Vital Signs/Intake and Output Vital Signs (last 24 hours): Temp Pulse Resp BP Pulse Ox 98.6 F 97 H 20 133/59 L 95 04/07/17 08:29 04/07/17 08:29 04/07/17 08:29 04/07/17 08:29 04/07/17 08:29 - Medications Medications: Current Medications Alendronate Sodium (Fosamax) 70 mg PO QWK [facility] Last Admin: 03/29/17 17:20 Dose: 70 mg Aspirin (Aspirin Chewable) 81 mg PO DAILY [facility] Last Admin: 04/07/17 08:38 Dose: 81 mg Calcium/Vitamin D (Citracal+D 315mg/250iu) 2 tab PO DAILY [facility] Last Admin: 04/07/17 08:38 Dose: 2 tab Docusate Sodium (Colace) 100 mg PO BID [facility] Last Admin: 04/07/17 08:38 Dose: 100 mg Enoxaparin Sodium (Lovenox) 40 mg SC DAILY [facility] PRN Reason: Protocol Last Admin: 03/31/17 08:42 Dose: 40 mg Famotidine (Pepcid) 20 mg PO BID [facility] Last Admin: 04/07/17 08:38 Dose: 20 mg Ferrous Sulfate (Feosol) 325 mg PO BID [facility] Last Admin: 04/07/17 08:38 Dose: 325 mg Folic Acid (Folic Acid) 1 mg PO DAILY [facility] Last Admin: 04/07/17 08:38 Dose: 1 mg Clindamycin Phosphate (Cleocin In Normal Saline) 600 mg in 50 mls @ 50 mls/hr IVPB Q8 [facility] PRN Reason: Protocol Last Admin: 04/07/17 09:06 Dose: 50 mls/hr Meropenem 1 gm/ Sodium (Chloride) 100 mls @ 100 mls/hr IVPB Q12@0500,1700 [facility] PRN Reason: Protocol Last Admin: 04/07/17 04:46 Dose: 100 mls/hr Lactobacillus Acidophilus (Bacid Acidophilus) 1 cap PO BID [facility] Last Admin: 04/07/17 09:11 Dose: 1 cap Oxycodone/Acetaminophen (Percocet 5/325 Mg Tab) 1 tab PO Q4 PRN PRN Reason: Pain, moderate (4-7) Stop: 04/09/17 09:04 Last Admin: 04/07/17 10:22 Dose: 1 tab Thiamine HCl (Vitamin B1 Tab) 100 mg PO DAILY [facility] Last Admin: 04/07/17 08:38 Dose: 100 mg - Labs Labs: 04/05/17 10:05 04/05/17 10:05 - Extremities Exam Additional comments: Left hip: dry. Still mild erythema to anterior thigh/prox half of incisional area. +ROM ankle/toes sensatino intact, thigh swelling improving, no drainage, incision intact, calves soft NT Neg homans +DP/PT pulses Assessment and Plan (1) Left displaced femoral neck fracture Assessment & Plan: s/p left THR thigh swelling improving, cont abx, monitor no ortho intervention indicated at this time PT/OT/OOB, NWB d/w Dr. Gonzalez, agrees with above Status: Acute
--- NOTE | 2017-04-07 13:08 | CP.PCM.PN ---
Subjective - Date & Time of Evaluation Date of Evaluation: 04/07/17 Time of Evaluation: 13:07 - Subjective Subjective: No new c/o Objective - Vital Signs/Intake and Output Vital Signs (last 24 hours): Temp Pulse Resp BP Pulse Ox 98.6 F 97 H 20 133/59 L 95 04/07/17 08:29 04/07/17 08:29 04/07/17 08:29 04/07/17 08:29 04/07/17 08:29 - Medications Medications: Current Medications Alendronate Sodium (Fosamax) 70 mg PO QWK [facility] Last Admin: 03/29/17 17:20 Dose: 70 mg Aspirin (Aspirin Chewable) 81 mg PO DAILY [facility] Last Admin: 04/07/17 08:38 Dose: 81 mg Calcium/Vitamin D (Citracal+D 315mg/250iu) 2 tab PO DAILY [facility] Last Admin: 04/07/17 08:38 Dose: 2 tab Docusate Sodium (Colace) 100 mg PO BID [facility] Last Admin: 04/07/17 08:38 Dose: 100 mg Enoxaparin Sodium (Lovenox) 40 mg SC DAILY [facility] PRN Reason: Protocol Last Admin: 03/31/17 08:42 Dose: 40 mg Famotidine (Pepcid) 20 mg PO BID [facility] Last Admin: 04/07/17 08:38 Dose: 20 mg Ferrous Sulfate (Feosol) 325 mg PO BID [facility] Last Admin: 04/07/17 08:38 Dose: 325 mg Folic Acid (Folic Acid) 1 mg PO DAILY [facility] Last Admin: 04/07/17 08:38 Dose: 1 mg Clindamycin Phosphate (Cleocin In Normal Saline) 600 mg in 50 mls @ 50 mls/hr IVPB Q8 [facility] PRN Reason: Protocol Last Admin: 04/07/17 09:06 Dose: 50 mls/hr Meropenem 1 gm/ Sodium (Chloride) 100 mls @ 100 mls/hr IVPB Q12@0500,1700 [facility] PRN Reason: Protocol Last Admin: 04/07/17 04:46 Dose: 100 mls/hr Lactobacillus Acidophilus (Bacid Acidophilus) 1 cap PO BID [facility] Last Admin: 04/07/17 09:11 Dose: 1 cap Oxycodone/Acetaminophen (Percocet 5/325 Mg Tab) 1 tab PO Q4 PRN PRN Reason: Pain, moderate (4-7) Stop: 04/09/17 09:04 Last Admin: 04/07/17 10:22 Dose: 1 tab Thiamine HCl (Vitamin B1 Tab) 100 mg PO DAILY [facility] Last Admin: 04/07/17 08:38 Dose: 100 mg - Labs Labs: 04/05/17 10:05 04/05/17 10:05 - Constitutional Appears: No Acute Distress - Head Exam Head Exam: ATRAUMATIC, NORMAL INSPECTION, NORMOCEPHALIC - Eye Exam Eye Exam: Normal appearance - ENT Exam ENT Exam: Mucous Membranes Moist - Neck Exam Neck Exam: Full ROM - Respiratory Exam Respiratory Exam: Clear to Ausculation Bilateral - Cardiovascular Exam Cardiovascular Exam: REGULAR RHYTHM, +S1, +S2 - GI/Abdominal Exam GI & Abdominal Exam: Soft, Normal Bowel Sounds - Neurological Exam Neurological Exam: Alert, Awake, CN II-XII Intact, Oriented x3 - Psychiatric Exam Psychiatric exam: Normal Affect - Skin Skin Exam: Normal Color Assessment and Plan (1) Hip fracture Status: Acute (2) Left displaced femoral neck fracture Status: Acute (3) Hyperlipemia Status: Chronic (4) Hypertensive cardiovascular disease Status: Chronic (5) Polio Status: Chronic (6) Osteoporosis Status: Chronic - Assessment and Plan (Free Text) Plan: Continue present rx.
--- NOTE | 2017-04-07 19:06 | CP.PCM.PN ---
Subjective - Date & Time of Evaluation Date of Evaluation: 04/07/17 Time of Evaluation: 12:00 - Subjective Subjective: no acute complaints at present Objective - Vital Signs/Intake and Output Vital Signs (last 24 hours): Temp Pulse Resp BP Pulse Ox 98.1 F 96 H 20 128/78 97 04/07/17 15:38 04/07/17 15:38 04/07/17 15:38 04/07/17 15:38 04/07/17 15:38 Intake and Output: 04/07/17 04/08/17 18:59 06:59 Intake Total 450 Balance 450 - Medications Medications: Current Medications Alendronate Sodium (Fosamax) 70 mg PO QWK [facility] Last Admin: 03/29/17 17:20 Dose: 70 mg Aspirin (Aspirin Chewable) 81 mg PO DAILY [facility] Last Admin: 04/07/17 08:38 Dose: 81 mg Calcium/Vitamin D (Citracal+D 315mg/250iu) 2 tab PO DAILY [facility] Last Admin: 04/07/17 08:38 Dose: 2 tab Docusate Sodium (Colace) 100 mg PO BID [facility] Last Admin: 04/07/17 17:33 Dose: 100 mg Enoxaparin Sodium (Lovenox) 40 mg SC DAILY [facility] PRN Reason: Protocol Last Admin: 03/31/17 08:42 Dose: 40 mg Famotidine (Pepcid) 20 mg PO BID [facility] Last Admin: 04/07/17 17:33 Dose: 20 mg Ferrous Sulfate (Feosol) 325 mg PO BID [facility] Last Admin: 04/07/17 17:34 Dose: 325 mg Folic Acid (Folic Acid) 1 mg PO DAILY [facility] Last Admin: 04/07/17 08:38 Dose: 1 mg Clindamycin Phosphate (Cleocin In Normal Saline) 600 mg in 50 mls @ 50 mls/hr IVPB Q8 [facility] PRN Reason: Protocol Last Admin: 04/07/17 17:32 Dose: 50 mls/hr Meropenem 1 gm/ Sodium (Chloride) 100 mls @ 100 mls/hr IVPB Q12@0500,1700 [facility] PRN Reason: Protocol Last Admin: 04/07/17 17:34 Dose: 100 mls/hr Lactobacillus Acidophilus (Bacid Acidophilus) 1 cap PO BID [facility] Last Admin: 12/08/17 17:32 Dose: 1 cap Oxycodone/Acetaminophen (Percocet 5/325 Mg Tab) 1 tab PO Q4 PRN PRN Reason: Pain, moderate (4-7) Stop: 04/09/17 09:04 Last Admin: 04/07/17 10:22 Dose: 1 tab Thiamine HCl (Vitamin B1 Tab) 100 mg PO DAILY [facility] Last Admin: 04/07/17 08:38 Dose: 100 mg - Labs Labs: 04/05/17 10:05 04/05/17 10:05 - Head Exam Head Exam: ATRAUMATIC, NORMAL INSPECTION, NORMOCEPHALIC - Eye Exam Eye Exam: EOMI, Normal appearance, PERRL Pupil Exam: NORMAL ACCOMODATION, PERRL - ENT Exam ENT Exam: Mucous Membranes Moist, Normal Exam - Neck Exam Neck Exam: Normal Inspection - Respiratory Exam Respiratory Exam: Clear to Ausculation Bilateral, NORMAL BREATHING PATTERN - Cardiovascular Exam Cardiovascular Exam: REGULAR RHYTHM - GI/Abdominal Exam GI & Abdominal Exam: Normal Bowel Sounds - Rectal Exam Rectal Exam: NORMAL INSPECTION - Exam External exam: NORMAL EXTERNAL EXAM - Extremities Exam Extremities Exam: Normal Capillary Refill, Normal Inspection - Back Exam Back Exam: NORMAL INSPECTION - Neurological Exam Neurological Exam: Alert, Awake Neuro motor strength exam: Left Upper Extremity: 4, Right Upper Extremity: 4, Left Lower Extremity: 2/1, Right Lower Extremity: 3 - Psychiatric Exam Psychiatric exam: Normal Affect, Normal Mood - Skin Skin Exam: Dry, Normal Color, Warm Assessment and Plan (1) Osteoporosis Status: Chronic (2) Hip fracture Status: Acute (3) Left displaced femoral neck fracture Assessment & Plan: plan for range of motion, strengthening, transfers and gait training physical, and occupational therapy monitor the skin incisional area Status: Acute (4) Hyperlipemia Status: Chronic (5) Hypertensive cardiovascular disease Status: Chronic (6) Polio Status: Chronic
[2017-04-08] MEDS: Clindamycin 600mg/50ml NS 600 MG/50 ML BAG IVPB SCH ×3 (00:09→16:40)
[2017-04-08] MEDS: Meropenem 1 GM in Sodium Chloride 0.9% 100 ML IVPB SCH ×2 (04:26→16:40)
[2017-04-08] MEDS: Oxycodone/Acetaminophen 5/325 mg Tab PO PRN (05:40)
[2017-04-08] MEDS: Lactobacillus Acidophilus 500 MU Cap PO SCH ×2 (09:08→16:40)
[2017-04-08] MEDS: Citracal+D 315mg/250IU PO SCH (09:08)
--- NOTE | 2017-04-08 20:52 | CP.PCM.PN ---
Subjective - Date & Time of Evaluation Date of Evaluation: 04/08/17 Time of Evaluation: 20:52 - Subjective Subjective: No new changes Objective - Vital Signs/Intake and Output Vital Signs (last 24 hours): Temp Pulse Resp BP Pulse Ox 99.3 F 92 H 20 121/79 96 04/08/17 20:25 04/08/17 20:25 04/08/17 20:25 04/08/17 20:25 04/08/17 20:25 - Medications Medications: Current Medications Alendronate Sodium (Fosamax) 70 mg PO QWK [facility] Last Admin: 03/29/17 17:20 Dose: 70 mg Aspirin (Aspirin Chewable) 81 mg PO DAILY [facility] Last Admin: 04/08/17 09:08 Dose: 81 mg Calcium/Vitamin D (Citracal+D 315mg/250iu) 2 tab PO DAILY [facility] Last Admin: 04/08/17 09:08 Dose: 2 tab Docusate Sodium (Colace) 100 mg PO BID [facility] Last Admin: 04/08/17 16:41 Dose: 100 mg Enoxaparin Sodium (Lovenox) 40 mg SC DAILY [facility] PRN Reason: Protocol Last Admin: 03/31/17 08:42 Dose: 40 mg Famotidine (Pepcid) 20 mg PO BID [facility] Last Admin: 04/08/17 16:41 Dose: 20 mg Ferrous Sulfate (Feosol) 325 mg PO BID [facility] Last Admin: 04/08/17 16:40 Dose: 325 mg Folic Acid (Folic Acid) 1 mg PO DAILY [facility] Last Admin: 04/08/17 09:08 Dose: 1 mg Clindamycin Phosphate (Cleocin In Normal Saline) 600 mg in 50 mls @ 50 mls/hr IVPB Q8 [facility] PRN Reason: Protocol Last Admin: 04/08/17 16:40 Dose: 50 mls/hr Meropenem 1 gm/ Sodium (Chloride) 100 mls @ 100 mls/hr IVPB Q12@0500,1700 [facility] PRN Reason: Protocol Last Admin: 04/08/17 16:40 Dose: 100 mls/hr Lactobacillus Acidophilus (Bacid Acidophilus) 1 cap PO BID [facility] Last Admin: 04/08/17 16:40 Dose: 1 cap Oxycodone/Acetaminophen (Percocet 5/325 Mg Tab) 1 tab PO Q4 PRN PRN Reason: Pain, moderate (4-7) Stop: 04/09/17 09:04 Last Admin: 04/08/17 05:40 Dose: 1 tab Thiamine HCl (Vitamin B1 Tab) 100 mg PO DAILY [facility] Last Admin: 04/08/17 09:08 Dose: 100 mg - Labs Labs: 04/05/17 10:05 04/05/17 10:05 - Constitutional Appears: No Acute Distress - Head Exam Head Exam: ATRAUMATIC, NORMAL INSPECTION, NORMOCEPHALIC - Eye Exam Eye Exam: Normal appearance - ENT Exam ENT Exam: Mucous Membranes Moist - Neck Exam Neck Exam: Full ROM - Respiratory Exam Respiratory Exam: Clear to Ausculation Bilateral - Cardiovascular Exam Cardiovascular Exam: REGULAR RHYTHM, +S1, +S2 - GI/Abdominal Exam GI & Abdominal Exam: Soft, Normal Bowel Sounds - Extremities Exam Additional comments: No new changes - Neurological Exam Neurological Exam: Alert, Awake, CN II-XII Intact, Oriented x3 - Psychiatric Exam Psychiatric exam: Normal Affect - Skin Skin Exam: Normal Color Assessment and Plan (1) Hip fracture Status: Acute (2) Left displaced femoral neck fracture Status: Acute (3) Hyperlipemia Status: Chronic (4) Hypertensive cardiovascular disease Status: Chronic (5) Polio Status: Chronic (6) Osteoporosis Status: Chronic - Assessment and Plan (Free Text) Plan: Continue present rx
[2017-04-09] MEDS: Clindamycin 600mg/50ml NS 600 MG/50 ML BAG IVPB SCH ×3 (01:15→16:33)
[2017-04-09] MEDS: Meropenem 1 GM in Sodium Chloride 0.9% 100 ML IVPB SCH ×2 (04:18→16:33)
[2017-04-09] MEDS: Citracal+D 315mg/250IU PO SCH (08:28)
[2017-04-09] MEDS: Lactobacillus Acidophilus 500 MU Cap PO SCH ×2 (08:29→16:33)
--- NOTE | 2017-04-09 10:12 | CP.PCM.PN ---
Subjective - Date & Time of Evaluation Date of Evaluation: 04/09/17 Time of Evaluation: 10:12 - Subjective Subjective: Comfortable, wound cellulites improving well Objective - Vital Signs/Intake and Output Vital Signs (last 24 hours): Temp Pulse Resp BP Pulse Ox 97.6 F 82 20 118/80 96 04/09/17 08:16 04/09/17 08:16 04/09/17 08:16 04/09/17 08:16 04/09/17 08:16 - Medications Medications: Current Medications Alendronate Sodium (Fosamax) 70 mg PO QWK [facility] Last Admin: 03/29/17 17:20 Dose: 70 mg Aspirin (Aspirin Chewable) 81 mg PO DAILY [facility] Last Admin: 04/09/17 08:27 Dose: 81 mg Calcium/Vitamin D (Citracal+D 315mg/250iu) 2 tab PO DAILY [facility] Last Admin: 04/09/17 08:28 Dose: 2 tab Docusate Sodium (Colace) 100 mg PO BID [facility] Last Admin: 04/09/17 08:28 Dose: 100 mg Enoxaparin Sodium (Lovenox) 40 mg SC DAILY [facility] PRN Reason: Protocol Last Admin: 03/31/17 08:42 Dose: 40 mg Famotidine (Pepcid) 20 mg PO BID [facility] Last Admin: 04/09/17 08:27 Dose: 20 mg Ferrous Sulfate (Feosol) 325 mg PO BID [facility] Last Admin: 04/09/17 08:27 Dose: 325 mg Folic Acid (Folic Acid) 1 mg PO DAILY [facility] Last Admin: 04/09/17 08:27 Dose: 1 mg Clindamycin Phosphate (Cleocin In Normal Saline) 600 mg in 50 mls @ 50 mls/hr IVPB Q8 [facility] PRN Reason: Protocol Last Admin: 04/09/17 08:28 Dose: 50 mls/hr Meropenem 1 gm/ Sodium (Chloride) 100 mls @ 100 mls/hr IVPB Q12@0500,1700 [facility] PRN Reason: Protocol Last Admin: 04/09/17 04:18 Dose: 100 mls/hr Lactobacillus Acidophilus (Bacid Acidophilus) 1 cap PO BID [facility] Last Admin: 04/09/17 08:29 Dose: 1 cap Thiamine HCl (Vitamin B1 Tab) 100 mg PO DAILY [facility] Last Admin: 04/09/17 08:27 Dose: 100 mg - Labs Labs: 04/05/17 10:05 04/05/17 10:05 - Constitutional Appears: No Acute Distress - Head Exam Head Exam: ATRAUMATIC, NORMAL INSPECTION, NORMOCEPHALIC - Eye Exam Eye Exam: Normal appearance - ENT Exam ENT Exam: Mucous Membranes Moist - Neck Exam Neck Exam: Full ROM - Respiratory Exam Respiratory Exam: Clear to Ausculation Bilateral - Cardiovascular Exam Cardiovascular Exam: REGULAR RHYTHM, +S1, +S2 - GI/Abdominal Exam GI & Abdominal Exam: Soft, Normal Bowel Sounds - Extremities Exam Additional comments: surgical wound dry clean erythema improving well - Neurological Exam Neurological Exam: Alert, Awake, CN II-XII Intact, Oriented x3 - Psychiatric Exam Psychiatric exam: Normal Affect - Skin Skin Exam: Normal Color Assessment and Plan (1) Hip fracture Status: Acute (2) Left displaced femoral neck fracture Status: Acute (3) Hyperlipemia Status: Chronic (4) Hypertensive cardiovascular disease Status: Chronic (5) Polio Status: Chronic (6) Osteoporosis Status: Chronic - Assessment and Plan (Free Text) Plan: Patient responding well to rx, will continue present antibx rx for 7 days.
[2017-04-09 10:47] LABS: BASO % 0.5 % (0.0-2.0); EOS # 0.2 K/uL (0.0-0.7); EOS % 2.5 % (0.0-4.0); HEMATOCRIT 33.5 % (34.0-47.0); LYMPH # 1.5 K/uL (1.0-4.3); LYMPH % 15.6 % (20.0-40.0); MEAN CELL VOLUME 88.4 fl (81.0-99.0); MEAN CORPUSCULAR HEMOGLOBIN 29.4 pg (27.0-31.0); MEAN CORPUSCULAR HGB CONC 33.2 g/dL (33.0-37.0); MEAN PLATELET VOLUME 7.3 fl (7.2-11.7); MONO # 0.9 K/uL (0.0-0.8); MONO % 8.9 % (0.0-10.0); NEUT # 7.2 K/uL (1.8-7.0); NEUT % 72.5 % (50.0-75.0); WHITE BLOOD COUNT 9.9 K/uL (4.8-10.8)
[2017-04-09 10:57] LABS: BLOOD UREA NITROGEN 17 mg/dl (7-17); CALCIUM 8.9 mg/dL (8.4-10.2); CARBON DIOXIDE 28 mmol/L (22-30); CHLORIDE 104 mmol/L (98-107); GFR AFRICAN-AMERICAN > 60; GLUCOSE,RANDOM 102 mg/dL (65-105); POTASSIUM 3.7 MMOL/L (3.6-5.0); SODIUM 140 mmol/l (132-148)
[2017-04-09] MEDS: Oxycodone/Acetaminophen 5/325 mg Tab PO PRN (13:31)
[2017-04-10] MEDS: Clindamycin 600mg/50ml NS 600 MG/50 ML BAG IVPB SCH ×3 (02:34→17:28)
[2017-04-10] MEDS: Meropenem 1 GM in Sodium Chloride 0.9% 100 ML IVPB SCH ×2 (05:10→17:27)
[2017-04-10] MEDS: Citracal+D 315mg/250IU PO SCH (08:33)
[2017-04-10] MEDS: Lactobacillus Acidophilus 500 MU Cap PO SCH ×2 (08:34→17:28)
[2017-04-10] MEDS: Oxycodone/Acetaminophen 5/325 mg Tab PO PRN (08:41)
--- NOTE | 2017-04-10 09:25 | CP.PCM.PN ---
Subjective - Date & Time of Evaluation Date of Evaluation: 04/10/17 Time of Evaluation: 09:23 - Subjective Subjective: Continued left hip pain. No new complaints. Objective - Vital Signs/Intake and Output Vital Signs (last 24 hours): Temp Pulse Resp BP Pulse Ox 97.9 F 93 H 20 110/78 100 04/10/17 08:12 04/10/17 08:12 04/10/17 08:12 04/10/17 08:12 04/10/17 08:12 - Medications Medications: Current Medications Alendronate Sodium (Fosamax) 70 mg PO QWK [facility] Last Admin: 03/29/17 17:20 Dose: 70 mg Aspirin (Aspirin Chewable) 81 mg PO DAILY [facility] Last Admin: 04/10/17 08:32 Dose: 81 mg Calcium/Vitamin D (Citracal+D 315mg/250iu) 2 tab PO DAILY [facility] Last Admin: 04/10/17 08:33 Dose: 2 tab Docusate Sodium (Colace) 100 mg PO BID [facility] Last Admin: 04/10/17 08:32 Dose: 100 mg Enoxaparin Sodium (Lovenox) 40 mg SC DAILY [facility] PRN Reason: Protocol Last Admin: 03/31/17 08:42 Dose: 40 mg Famotidine (Pepcid) 20 mg PO BID [facility] Last Admin: 04/10/17 08:34 Dose: 20 mg Ferrous Sulfate (Feosol) 325 mg PO BID [facility] Last Admin: 04/10/17 08:32 Dose: 325 mg Folic Acid (Folic Acid) 1 mg PO DAILY [facility] Last Admin: 04/10/17 08:32 Dose: 1 mg Clindamycin Phosphate (Cleocin In Normal Saline) 600 mg in 50 mls @ 50 mls/hr IVPB Q8 [facility] PRN Reason: Protocol Last Admin: 04/10/17 08:30 Dose: 50 mls/hr Meropenem 1 gm/ Sodium (Chloride) 100 mls @ 100 mls/hr IVPB Q12@0500,1700 [facility] PRN Reason: Protocol Last Admin: 04/10/17 05:10 Dose: 100 mls/hr Lactobacillus Acidophilus (Bacid Acidophilus) 1 cap PO BID [facility] Last Admin: 04/10/17 08:34 Dose: 1 cap Oxycodone/Acetaminophen (Percocet 5/325 Mg Tab) 1 tab PO Q4 PRN PRN Reason: Pain, moderate (4-7) Stop: 04/12/17 13:23 Last Admin: 04/10/17 08:41 Dose: 1 tab Thiamine HCl (Vitamin B1 Tab) 100 mg PO DAILY [facility] Last Admin: 04/10/17 08:32 Dose: 100 mg - Labs Labs: 04/09/17 10:30 04/09/17 10:30 - Extremities Exam Additional comments: left hip: slowly improving, still mildly erythematous but improving. Incision intact, dry. sutures from right iliac crest removed. +ROM ankle/toes, sensation intact, calves soft NT neg homans Assessment and Plan (1) Left displaced femoral neck fracture Assessment & Plan: 2 weeks s/p left hip THR -NWB -monitor hip -PT/OT VTE proph d/w Dr. Goznalez, agrees with above Status: Acute
--- NOTE | 2017-04-10 12:27 | CP.PCM.PN ---
Subjective - Date & Time of Evaluation Date of Evaluation: 04/10/17 Time of Evaluation: 12:27 - Subjective Subjective: Improving well. For iv antibx rx x 10 days. 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 Objective - Vital Signs/Intake and Output Vital Signs (last 24 hours): Temp Pulse Resp BP Pulse Ox 97.9 F 93 H 20 110/78 100 04/10/17 08:12 04/10/17 08:12 04/10/17 08:12 04/10/17 08:12 04/10/17 08:12 - Medications Medications: Current Medications Alendronate Sodium (Fosamax) 70 mg PO QWK [facility] Last Admin: 03/29/17 17:20 Dose: 70 mg Aspirin (Aspirin Chewable) 81 mg PO DAILY [facility] Last Admin: 04/10/17 08:32 Dose: 81 mg Calcium/Vitamin D (Citracal+D 315mg/250iu) 2 tab PO DAILY [facility] Last Admin: 04/10/17 08:33 Dose: 2 tab Docusate Sodium (Colace) 100 mg PO BID [facility] Last Admin: 04/10/17 08:32 Dose: 100 mg Enoxaparin Sodium (Lovenox) 40 mg SC DAILY [facility] PRN Reason: Protocol Last Admin: 03/31/17 08:42 Dose: 40 mg Famotidine (Pepcid) 20 mg PO BID [facility] Last Admin: 04/10/17 08:34 Dose: 20 mg Ferrous Sulfate (Feosol) 325 mg PO BID [facility] Last Admin: 04/10/17 08:32 Dose: 325 mg Folic Acid (Folic Acid) 1 mg PO DAILY [facility] Last Admin: 04/10/17 08:32 Dose: 1 mg Clindamycin Phosphate (Cleocin In Normal Saline) 600 mg in 50 mls @ 50 mls/hr IVPB Q8 [facility] PRN Reason: Protocol Last Admin: 04/10/17 08:30 Dose: 50 mls/hr Meropenem 1 gm/ Sodium (Chloride) 100 mls @ 100 mls/hr IVPB Q12@0500,1700 [facility] PRN Reason: Protocol Last Admin: 04/10/17 05:10 Dose: 100 mls/hr Lactobacillus Acidophilus (Bacid Acidophilus) 1 cap PO BID [facility] Last Admin: 04/10/17 08:34 Dose: 1 cap Oxycodone/Acetaminophen (Percocet 5/325 Mg Tab) 1 tab PO Q4 PRN PRN Reason: Pain, moderate (4-7) Stop: 04/12/17 13:23 Last Admin: 04/10/17 08:41 Dose: 1 tab Thiamine HCl (Vitamin B1 Tab) 100 mg PO DAILY [facility] Last Admin: 04/10/17 08:32 Dose: 100 mg - Labs Labs: 04/09/17 10:30 04/09/17 10:30 - Constitutional Appears: No Acute Distress - Head Exam Head Exam: ATRAUMATIC, NORMAL INSPECTION, NORMOCEPHALIC - Eye Exam Eye Exam: Normal appearance - ENT Exam ENT Exam: Mucous Membranes Moist - Neck Exam Neck Exam: Full ROM - Respiratory Exam Respiratory Exam: Clear to Ausculation Bilateral - Cardiovascular Exam Cardiovascular Exam: REGULAR RHYTHM, +S1, +S2 - GI/Abdominal Exam GI & Abdominal Exam: Soft, Normal Bowel Sounds - Extremities Exam Extremities Exam: Normal Inspection - Neurological Exam Neurological Exam: Alert, Awake, CN II-XII Intact, Oriented x3 - Psychiatric Exam Psychiatric exam: Normal Affect - Skin Skin Exam: Normal Color Assessment and Plan (1) Hip fracture Status: Acute (2) Left displaced femoral neck fracture Status: Acute (3) Hyperlipemia Status: Chronic (4) Hypertensive cardiovascular disease Status: Chronic (5) Polio Status: Chronic (6) Osteoporosis Status: Chronic - Assessment and Plan (Free Text) Plan: For vermin exterminator rehab
[2017-04-11] MEDS: Clindamycin 600mg/50ml NS 600 MG/50 ML BAG IVPB SCH ×2 (00:08→08:49)
[2017-04-11 08:43] VITALS: BP 106/77; PULSE 89; TEMP 98.4; O2SAT 96
[2017-04-11] MEDS: Citracal+D 315mg/250IU PO SCH (08:48)
[2017-04-11] MEDS: Lactobacillus Acidophilus 500 MU Cap PO SCH (08:48)
--- NOTE | 2017-04-11 13:21 | CP.PCM.DIS ---
Provider - Provider Date of Admission: 03/28/17 23:15 Attending physician: Schuyler Johnson MD Time Spent in preparation of Discharge (in minutes): 30 Diagnosis - Discharge Diagnosis (1) Hip fracture Status: Acute (2) Left displaced femoral neck fracture Status: Acute (3) Hyperlipemia Status: Chronic (4) Hypertensive cardiovascular disease Status: Chronic (5) Polio Status: Chronic (6) Osteoporosis Status: Chronic Hospital Course - Lab Results Lab Results: Most Recent Lab Values WBC 9.9 K/uL (4.8-10.8) 04/09/17 10:30 RBC 3.78 Mil/uL (3.80-5.20) L 04/09/17 10:30 Hgb 11.1 g/dL (12.0-16.0) L 04/09/17 10:30 Hct 33.5 % (34.0-47.0) L 04/09/17 10:30 MCV 88.4 fl (81.0-99.0) 04/09/17 10:30 MCH 29.4 pg (27.0-31.0) 04/09/17 10:30 MCHC 33.2 g/dL (33.0-37.0) 04/09/17 10:30 RDW 16.0 % (11.5-14.5) H 04/09/17 10:30 Plt Count 483 K/uL (130-400) H D 04/09/17 10:30 MPV 7.3 fl (7.2-11.7) 04/09/17 10:30 Neut % (Auto) 72.5 % (50.0-75.0) 04/09/17 10:30 Lymph % (Auto) 15.6 % (20.0-40.0) L 04/09/17 10:30 [place] % (Auto) 8.9 % (0.0-10.0) 04/09/17 10:30 Eos % (Auto) 2.5 % (0.0-4.0) 04/09/17 10:30 Baso % (Auto) 0.5 % (0.0-2.0) 04/09/17 10:30 Neut # 7.2 K/uL (1.8-7.0) H 04/09/17 10:30 Lymph # 1.5 K/uL (1.0-4.3) 04/09/17 10:30 [place] # 0.9 K/uL (0.0-0.8) H 04/09/17 10:30 Eos # 0.2 K/uL (0.0-0.7) 04/09/17 10:30 Baso # 0.0 K/uL (0.0-0.2) 04/09/17 10:30 ESR 91 mm/hr (0-30) H 04/02/17 07:30 Sodium 140 mmol/l (132-148) 04/09/17 10:30 Potassium 3.7 MMOL/L (3.6-5.0) 04/09/17 10:30 Chloride 104 mmol/L (98-107) 04/09/17 10:30 Carbon Dioxide 28 mmol/L (22-30) 04/09/17 10:30 Anion Gap 12 (10-20) 04/09/17 10:30 BUN 17 mg/dl (7-17) 04/09/17 10:30 Creatinine 0.4 mg/dl (0.7-1.2) L 04/09/17 10:30 Est GFR ( Amer) > 60 04/09/17 10:30 Est GFR (Non-Af Amer) > 60 04/09/17 10:30 POC Glucose (mg/dL) 103 mg/dL (65-110) 04/03/17 05:25 Random Glucose 102 mg/dL (65-105) 04/09/17 10:30 Calcium 8.9 mg/dL (8.4-10.2) 04/09/17 10:30 Phosphorus 1.3 mg/dl (2.5-4.5) L 03/29/17 12:39 Magnesium 1.8 MG/DL (1.6-2.3) 03/29/17 12:39 NT-Pro-B Natriuret Pep 1450 pg/ml (0-900) H 03/29/17 12:39 Procalcitonin 0.06 NG/ML (0.19-0.49) L 04/02/17 07:30 TSH 3rd Generation 4.75 mIU/ML (0.46-4.68) H 03/30/17 12:19 - Hospital Course Hospital Course: Pt.is 71 y/o Icelandic speaking lady with hx of HTN, residual of polio in her lt lower limb. She c/o that day of admission she attempted to sit on top of her radiator and accidentally fell landing on her L side injuring her L hip. She has an acute fx of the hip. The patient underwent to hip surgery. She was in TCU for rehabilitation. Patient was started on iv antibx for cellulites in the lt lower limb, She is responding well to rx. For senior living rehab. and iv rx x 10 days. No foot bearing until evaluation from orthopedic. Discharge Exam - Head Exam Head Exam: ATRAUMATIC, NORMAL INSPECTION, NORMOCEPHALIC - Eye Exam Eye Exam: EOMI, Normal appearance, PERRL Pupil Exam: NORMAL ACCOMODATION, PERRL - Respiratory Exam Respiratory Exam: Clear to PA & Lateral, NORMAL BREATHING PATTERN, UNREMARKABLE - Cardiovascular Exam Cardiovascular Exam: REGULAR RHYTHM, +S1, +S2 - GI/Abdominal Exam GI & Abdominal Exam: Normal Bowel Sounds - Back Exam Additional comments: cellulites resolving - Neurological Exam Neurological exam: Alert, CN II-XII Intact, Oriented x3 - Psychiatric Exam Psychiatric exam: Normal Affect - Skin Skin Exam: Normal Color Discharge Plan - Discharge Medications Prescriptions: Meropenem IV 1 gm in NS [Merrem IV 1 gm Premix] 1 gm IVPB Q12 10 Days #20 bag - Follow Up Plan Condition: GOOD Disposition: REHAB FACILITY/REHAB UNIT Instructions: Precautions after Total Joint Replacement Surgery (DC), Fall Prevention (DC), Joint Replacement Surgery (DC), Total Hip Replacement (DC) Referrals: Tod Gonzalez III, MD [Staff Provider] - Nazario Good MD [Medical Doctor] -
== END 2017-04-11 14:56 | DRG 560 ==
LOC: H.TCU 23:15
PROVIDERS: ADMIT Internal Medicine; ATTEND Internal Medicine
PROC: F07M6FZ Therapeutic Exercise Treatment of Musculoskeletal System - Whole Body using Assistive, Adaptive, Supportive or Protective Equipment (ICD-10-PCS; principal; 2017-03-28)
PROC: F07Z9FZ Gait Training/Functional Ambulation Treatment using Assistive, Adaptive, Supportive or Protective Equipment (ICD-10-PCS; 2017-03-28)
DX: S72.142D Displaced intertrochanteric fracture of left femur, subsequent encounter for closed fracture with routine healing (principal); L03.116 Cellulitis of left lower limb; I11.9 Hypertensive heart disease without heart failure; B91 Sequelae of poliomyelitis; W19.XXXD Unspecified fall, subsequent encounter; E78.00 Pure hypercholesterolemia, unspecified; E78.5 Hyperlipidemia, unspecified; M81.0 Age-related osteoporosis without current pathological fracture; Z79.82 Long term (current) use of aspirin; Z96.642 Presence of left artificial hip joint; F41.9 Anxiety disorder, unspecified; F45.9 Somatoform disorder, unspecified; R60.9 Edema, unspecified